=== PATIENT | male | born 1970 | race African-American/Black ===

== ENCOUNTER 2019-05-17 19:17 | Emergency (ER) | payer OTHER ==
[~2019-05-17] VITALS: Ht 188 cm; Wt 90.7 kg
[2019-05-17] MEDS ORDERED: UNABLE MC (19:40)
[2019-05-17] MEDS ORDERED: IV NORMAL SALINE 1000ML BAG 1,000 ML IV ONE (20:00)
[2019-05-17 20:05] LABS: BASO % 1 % (0-3); EOS % 0 % (0-3); HEMATOCRIT 44.5 % (39.0-53.0); HEMOGLOBIN 14.7 g/dL (13.0-17.5); LYMPH # 1.9 x10^3/uL (1.0-4.8); LYMPH % 26 % (24-48); MEAN CORPUSCULAR HEMOGLOBIN 34 pg (25-35); MEAN CORPUSCULAR HGB CONC 33 g/dL (31-37); MEAN CORPUSCULAR VOLUME 104 fL (79-100); MONO # 0.9 x10^3/uL (0.0-1.1); MONO % 12 % (0-9); NEUT # 4.4 x10^3uL (1.8-7.7); NEUT % 61 % (31-73); PLATELET COUNT 126 x10^3/uL (140-400); RED BLOOD COUNT 4.29 x10^6/uL (4.30-5.70); WHITE BLOOD COUNT 7.2 x10^3/uL (4.0-11.0)
[2019-05-17 20:20] LABS: CALCIUM 9.5 mg/dL (8.5-10.1); GFR 96.9; POTASSIUM 3.7 mmol/L (3.5-5.1)
[2019-05-17 20:27] LABS: ALBUMIN/GLOBULIN RATIO 0.8 (1.0-1.7); TOTAL BILIRUBIN 1.3 mg/dL (0.2-1.0); TOTAL PROTEIN 8.8 g/dL (6.4-8.2)
[2019-05-17 20:50] VITALS: BP 171/76
--- NOTE | 2019-05-17 21:32 | PHYS DOC ---
Past Medical History Past Medical History: Seizure, Schizophrenia, Other Past Surgical History: Other Additional Past Surgical Histo: left eye Alcohol Use: Occasionally Drug Use: Marijuana Adult General Chief Complaint Chief Complaint: SEIZURE HPI HPI 48-year-old male with a history of seizures presents after a seizure this evening. He states he does not remember much of the event. He does state that he has not had any headaches or lateralizing neurologic weakness. He denies any fever chills or sweats. He denies neck pain. He states he takes a seizure medicine but he is not sure exactly what the name of it is.[] Review of Systems Review of Systems Constitutional: Denies fever or chills [] Eyes: Denies change in visual acuity, redness, or eye pain [] HENT: Denies nasal congestion or sore throat [] Respiratory: Denies cough or shortness of breath [] Cardiovascular: No additional information not addressed in HPI [] GI: Denies abdominal pain, nausea, vomiting, bloody stools or diarrhea [] : Denies dysuria or hematuria [] Musculoskeletal: Denies back pain or joint pain [] Integument: Denies rash or skin lesions [] Neurologic: Per history of present illness[] Endocrine: Denies polyuria or polydipsia [] All other systems were reviewed and found to be within normal limits, except as documented in this note. Current Medications Current Medications Current Medications Medications (Trade) Dose Ordered Sig/Erik Start Time Stop Time Status Last Admin Dose Admin Sodium Chloride 1,000 ml @ 1,000 mls/hr 1X ONCE 05/17/19 20:00 05/17/19 20:59 DC 05/17/19 20:04 1,000 MLS/HR Allergies Allergies Allergies Coded Allergies Type Severity Reaction Last Updated Verified No Known Drug Allergies 05/17/19 No Physical Exam Physical Exam Constitutional: Chronically ill, somnolent[] HENT: Normocephalic, atraumatic, bilateral external ears normal, oropharynx moist, very poor dentition[] Eyes: PERRLA, EOMI, conjunctiva normal, no discharge. [] Neck: Normal range of motion, no tenderness, supple, no stridor. [] Cardiovascular:Heart rate regular rhythm, no murmur [] Lungs & Thorax: Bilateral breath sounds clear to auscultation [] Abdomen: Bowel sounds normal, soft, no tenderness, no masses, no pulsatile masses. [] Skin: Warm, dry, no erythema, no rash. [] Back: No tenderness, no CVA tenderness. [] Extremities: No tenderness, no cyanosis, no clubbing, ROM intact, no edema. [] Neurologic: Easily arousable, normal motor function, normal sensory function, no focal deficits noted. [] Psychologic: Flat affect. [] Current Patient Data Vital Signs Vital Signs Date Time Temp Pulse Resp B/P (MAP) Pulse Ox O2 Delivery O2 Flow Rate FiO2 05/17/19 20:50 92 99 05/17/19 20:20 11 05/17/19 19:19 98.6 166/107 (126) Room Air 98.6 Lab Values Laboratory Tests Test 05/17/19 19:25 White Blood Count 7.2 x10^3/uL (4.0-11.0) Red Blood Count 4.29 x10^6/uL (4.30-5.70) L Hemoglobin 14.7 g/dL (13.0-17.5) Hematocrit 44.5 % (39.0-53.0) Mean Corpuscular Volume 104 fL (79-100) H Mean Corpuscular Hemoglobin 34 pg (25-35) Mean Corpuscular Hemoglobin Concent 33 g/dL (31-37) Red Cell Distribution Width 13.0 % (11.5-14.5) Platelet Count 126 x10^3/uL (140-400) L Neutrophils (%) (Auto) 61 % (31-73) Lymphocytes (%) (Auto) 26 % (24-48) Monocytes (%) (Auto) 12 % (0-9) H Eosinophils (%) (Auto) 0 % (0-3) Basophils (%) (Auto) 1 % (0-3) Neutrophils # (Auto) 4.4 x10^3uL (1.8-7.7) Lymphocytes # (Auto) 1.9 x10^3/uL (1.0-4.8) Monocytes # (Auto) 0.9 x10^3/uL (0.0-1.1) Eosinophils # (Auto) 0.0 x10^3/uL (0.0-0.7) Basophils # (Auto) 0.0 x10^3/uL (0.0-0.2) Sodium Level 135 mmol/L (136-145) L Potassium Level 3.7 mmol/L (3.5-5.1) Chloride Level 95 mmol/L (98-107) L Carbon Dioxide Level 13 mmol/L (21-32) L Anion Gap 27 (6-14) H Blood Urea Nitrogen 8 mg/dL (8-26) Creatinine 1.0 mg/dL (0.7-1.3) Estimated GFR (Cockcroft-Gault) 96.9 BUN/Creatinine Ratio 8 (6-20) Glucose Level 132 mg/dL (70-99) H Calcium Level 9.5 mg/dL (8.5-10.1) Total Bilirubin 1.3 mg/dL (0.2-1.0) H Aspartate Amino Transferase (AST) 61 U/L (15-37) H Alanine Aminotransferase (ALT) 66 U/L (16-63) H Alkaline Phosphatase 44 U/L (46-116) L Creatine Kinase 129 U/L (39-308) Total Protein 8.8 g/dL (6.4-8.2) H Albumin 4.0 g/dL (3.4-5.0) Albumin/Globulin Ratio 0.8 (1.0-1.7) L Laboratory Tests 05/17/19 19:25 Laboratory Tests 05/17/19 19:25 EKG EKG [] Radiology/Procedures Radiology/Procedures [] Course & Med Decision Making Course & Med Decision Making Pertinent Labs and Imaging studies reviewed. (See chart for details) [ED course: Evaluation reveals 48-year-old male who seemed post ictal on initial exam he did wake up quite a bit throughout his stay in the department. He had no further seizures. Patient was wanting to go home. I think the patient is safe to do so.] Dragon Disclaimer Dragon Disclaimer This electronic medical record was generated, in whole or in part, using a voice recognition dictation system. Departure Departure Impression: Primary Impression: Seizure Disposition: 01 HOME, SELF-CARE Condition: IMPROVED Referrals: NO PCP (PCP) Patient Instructions: Seizure, Adult Additional Instructions: Follow with her primary care physician in the next 3-5 days for recheck. Return to the emergency department with any new or concerning symptoms YOLY VERGARA DO May 17, 2019 21:32
--- NOTE | 2019-05-18 09:44 | EKG ---
[facility] [address] [place] [address] Test Date: 2019-05-17 Test Time: 19:26:26 Pat Name: CONI SALDIVAR Department: Room: Gender: M Entry Level Lab Technician: : 1970 Requested By: YOLY VERGARA Order Number: [id number] Reading MD: Measurements Intervals [place] Rate: 102 P: 43 MD: 144 QRS: 53 QRSD: 82 T: 24 QT: 338 QTc: 445 Interpretive Statements SINUS TACHYCARDIA OTHERWISE NORMAL ECG RI6.01 Unconfirmed report No previous ECG available for comparison
== END 2019-05-17 21:45 | disposition home or self-care (01) ==
LOC: ER 19:17
DX: R56.9 Unspecified convulsions (principal); F20.9 Schizophrenia, unspecified
CPT/HCPCS: 80053; 82550; 85025; 93005; 99285; J7030

== ENCOUNTER 2020-07-08 14:53 | Inpatient (IN) | payer OTHER ==
[~2020-07-08] VITALS: Ht 180.3 cm; Wt 86.0 kg
[~2020-07-08 14:53] MED LIST: UNABLE MC
--- NOTE | 2020-07-08 15:29 | PHYS DOC ---
Past Medical History Past Medical History: Seizure, Schizophrenia, Other (JEFF BARKLEY MANAGER HEART) Past Surgical History: Other Additional Past Surgical Histo: left eye (JEFF BARKLEY MANAGER HEART) Smoking Status: Current Every Day Smoker Alcohol Use: Occasionally Drug Use: Marijuana (RUBIAJEFF MANAGER HEART) General Adult EDM: Chief Complaint: LOWEREXTREMITY INJURY HPI: HPI: Patient is a 49 year old male who presents with states he fell down 8 stairs 2 weeks ago but did not seek any medical care. He states that he had back pain and he thinks that he hit his head and lost consciousness. He is here today complaining of bilateral lower extremity pain, bilateral lower feet swelling, right upper inner femur pain and right hip pain and right low back pain especially when up and walking. Patient has 3+ swelling in bilateral lower feet that are reddened and tender to touch. Patient rates his aching sharp pain a 8 out of 10. Patient has a history of schizophrenia, seizure, smoker. Patient denies chest pain, shortness of air, headache, dizziness, vision changes, numbness or tingling, abdominal pain, nausea, vomiting, diarrhea, fever, cough. (JEFF BARKLEY MANAGER HEART) Review of Systems: Review of Systems: Constitutional: Denies fever or chills. [] Eyes: Denies change in visual acuity. [] HENT: Denies nasal congestion or sore throat. [] Respiratory: Denies cough or shortness of breath. [] Cardiovascular: Denies chest pain. Bilateral lower feet edema. [] GI: Denies abdominal pain, nausea, vomiting, bloody stools or diarrhea. [] : Denies dysuria. [] Musculoskeletal: Right lower back pain or lower feet joint pain. Right upper inner femur [] Integument: Denies rash. Redness to bilateral lower feet [] Neurologic: Denies headache, focal weakness or sensory changes. [] Endocrine: Denies polyuria or polydipsia. [] Lymphatic: Denies swollen glands. [] Psychiatric: Denies depression or anxiety. [] (JEFF BARKLEY MANAGER HEART) Heart Score: Risk Factors: Risk Factors: DM, Current or recent (<one month) smoker, HTN, HLP, family history of CAD, obesity. Risk Scores: Score 0 - 3: 2.5% MACE over next 6 weeks - Discharge Home Score 4 - 6: 20.3% MACE over next 6 weeks - Admit for Clinical Observation Score 7 - 10: 72.7% MACE over next 6 weeks - Early Invasive Strategies (JEFF BARKLEY APRN) Allergies: Allergies: Allergies Coded Allergies Type Severity Reaction Last Updated Verified No Known Drug Allergies 05/17/19 No (JEFF BARKLEY APRN) Physical Exam: PE: Constitutional: Well developed, well nourished, no acute distress, non-toxic appearance. [] HENT: Normocephalic, atraumatic, bilateral external ears normal, oropharynx moist, no oral exudates, nose normal. [] Eyes: PERRLA, EOMI, conjunctiva normal, no discharge. [] Neck: Normal range of motion, no tenderness, supple, no stridor. [] Cardiovascular:Heart rate regular rhythm, no murmur [] Lungs & Thorax: Bilateral upper breath sounds clear and lower diminished to auscultation [] Abdomen: Bowel sounds normal, soft, no tenderness, no masses, no pulsatile mas ses. [] Skin: Warm, dry, bilateral lower feet erythema, no rash. [] Back: No tenderness, no CVA tenderness. [] Extremities: Bilateral lower feet tenderness, no cyanosis, no clubbing, ROM int act, bilateral lower feet 3+ edema. [] Neurologic: Alert and oriented X 3, normal motor function, normal sensory function, no focal deficits noted. [] Psychologic: Affect normal, judgement normal, mood normal. [] (JEFF BARKLEY APRN) EKG: EKG: [] (JEFF BARKLEY APRN) Radiology/Procedures: Radiology/Procedures: [] Impression: [facility] [address] [place], [place] [id number] IMAGING REPORT Signed PATIENT: CONI SALDIVAR ACCOUNT: [id number] : 1970 LOCATION: ER AGE: 49 SEX: M EXAM STATUS: REG ER ORD. PHYSICIAN: JEFF BARKLEY APRN REASON: fall, pain PROCEDURE: RIGHT FEMUR XRAY Exam: Right femur 2 views INDICATION: Fall, pain TECHNIQUE: Frontal and lateral views of the right femur Comparisons: None FINDINGS: Bone mineralization is normal. No acute or healed fractures. Soft tissues are unremarkable. Joint spaces are well-maintained. IMPRESSION: No acute osseous abnormality. Electronically signed by: Alfred Greenfield MD (07/08/2020 4:02 PM) [id number] DICTATED and SIGNED BY: ALFRED GREENFIELD MD DATE: 07/08/[address] [place] [address] IMAGING REPORT Signed PATIENT: CONI SALDIVAR ACCOUNT: [id number] : 1970 LOCATION: ER AGE: 49 SEX: M EXAM STATUS: REG ER ORD. PHYSICIAN: JEFF BARKLEY APRN REASON: fall, pain PROCEDURE: HIP BILATERAL WITH PELVIS Exam: Pelvis with bilateral hips INDICATION: Fall, pain TECHNIQUE: Frontal view of the pelvis with frontal and frog-leg lateral views of the hips bilaterally. Comparisons: None FINDINGS: Possible cortical step-off seen at the inferior pubic rami on the right is seen only on frog-leg lateral view of the right hip. Bone mineralization is normal. No other acute or healed fractures. Soft tissues are unremarkable. Joint spaces are well-maintained. IMPRESSION: Question minimally displaced fracture involving the right inferior pubic rami. Recommend correlation with CT pelvis Electronically signed by: Alfred Greenfield MD (07/08/2020 4:02 PM) [id number] DICTATED and SIGNED BY: ALFRED GREENFIELD MD DATE: 07/08/[address] [place] [id number] IMAGING REPORT Signed PATIENT: CONI SALDIVAR ACCOUNT: [id number] : 1970 LOCATION: ER AGE: 49 SEX: M EXAM STATUS: REG ER ORD. PHYSICIAN: JEFF BARKLEY APRN REASON: FALL, LOC, DIFFICULTY COOPERATING FOR CT PROCEDURE: CT HEAD AND CERVICAL SPINE WO CT HEAD WITHOUT CONTRAST 07/08/2020 3:21 PM Indication: Reason: FALL, LOC, DIFFICULTY COOPERATING FOR CT / Spl. Instructions: / History: Comparison: CT of the head without contrast July 29, 2006 Procedure: Multidetector CT imaging of the head was performed without the administration of contrast. Findings: There is no evidence of acute intracranial hemorrhage. There is no evidence of acute territorial infarction. Please note that CT is limited for evaluation of acute ischemia. No mass effect or midline shift is identified . The ventricles and basilar cisterns have an appropriate appearance. No abnormal extra-axial fluid collections are seen. No acute osseous changes are identified. Impression: No evidence of acute intracranial abnormality CT cervical spine without contrast. 07/08/2020 3:21 PM Indication:Reason: FALL, LOC, DIFFICULTY COOPERATING FOR CT / Spl. Instructions: / History: Comparison Study: None Technique: Multidetector CT imaging of the cervical spine was obtained without administration of contrast. Findings: There is no evidence of acute fracture or alignment abnormality of the cervical spine. Vertebral body heights and disc spaces are maintained. The atlantoaxial articulation is within normal limits. There is no prevertebral soft tissue swelling. Soft tissues are otherwise unremarkable. No bony compromise of the spinal canal is seen. Impression: No evidence of acute fracture or alignment abnormality of the cervical spine CT DOSING PQRS STATEMENT: One or more of the following individualized dose reduction techniques were utilized for this examination: 1. Automated exposure control 2. Adjustment of the mA and/or kV according to patient size 3. Use of iterative reconstruction technique Electronically signed by: Osmani Aceves MD (07/08/2020 4:04 PM) [id number] DICTATED and SIGNED BY: OSMANI ACEVES MD DATE: 07/08/20 1604 [facility] [address] [place] [address] IMAGING REPORT Signed PATIENT: CONI SALDIVAR ACCOUNT: [id number] : 1970 LOCATION: ER AGE: 49 SEX: M EXAM STATUS: REG ER ORD. PHYSICIAN: JEFF BARKLEY APRN REASON: fall, pain PROCEDURE: FOOT BILAT 3V Exam: Right and left foot 3 views INDICATION: Fall, pain TECHNIQUE: Frontal, lateral and oblique views of the right foot Comparisons: None FINDINGS: Right foot: Bone mineralization is normal. No acute or healed fractures. There is diffuse soft tissue swelling surrounding the midfoot. Joint spaces are well-maintained. Left foot: Bone mineralization is normal. No acute or healed fractures. There is diffuse soft tissue swelling surrounding the left midfoot. Joint spaces are well-maintained. IMPRESSION: Soft tissue swelling surrounding the right and left midfoot without acute fracture identified. Electronically signed by: Alfred Greenfield MD (07/08/2020 3:58 PM) [id number] DICTATED and SIGNED BY: ALFRED GREENFIELD MD DATE: 07/08/20 1558 [facility] [address] [place] [address] IMAGING REPORT Signed PATIENT: CONI SALDIVAR ACCOUNT: [id number] : 1970 LOCATION: ER AGE: 49 SEX: M EXAM STATUS: REG ER ORD. PHYSICIAN: JEFF BARKLEY APRN REASON: fall, BACK PAIN PROCEDURE: CT LUMBAR SPINE WO CONTRAST CT LUMBAR SPINE WO CONTRAST Indication: Fall, back pain Technique: Noncontrast CT imaging was performed of the lumbar spine, multiplanar reconstruction images submitted. One or more of the following individualized dose reduction techniques were utilized for this examination: 1. Automated exposure control 2. Adjustment of the mA and/or kV according to patient size 3. Use of iterative reconstruction technique. Comparison: None Findings: There is bone demineralization. There is inferior compression deformity of L4, L3, L2 and also central height loss of L1. There is no significant osseous retropulsion, negligible osseous retropulsion of the superior aspect of L1. There is severe L5-S1 degenerative disc disease with sclerotic endplate change. No significant spinal stenosis is identified on this nonmyelographic exam. There is multilevel lumbar facet degenerative change. Disc osteophyte complex contributes to moderate narrowing of the left L5-S1 neural foramen. There is mild lumbar levoscoliosis. IMPRESSION: 1. There is bone demineralization. There is age indeterminate multilevel compression deformity L1-L4, no previous exam for comparison. 2. There is L5-S1 degenerative disc disease and spondylosis. There is moderate narrowing of the left L5-S1 neural foramen by disc osteophyte complex. Electronically signed by: Maurice Moran MD (07/08/2020 4:05 PM) [id number] DICTATED and SIGNED BY: MAURICE MORAN MD DATE: 07/08/20 1605 [facility] [address] [place] [address] IMAGING REPORT Signed PATIENT: CONI SALDIVAR ACCOUNT: [id number] : 1970 LOCATION: ER AGE: 49 SEX: M EXAM STATUS: REG ER ORD. PHYSICIAN: JEFF BARKLEY APRN REASON: POSSIBLE FRACTURE, FALL 2 WKS AGO, RT HIP PAIN PROCEDURE: CT PELVIS WO CONTRAST Exam: CT pelvis without contrast INDICATION: Possible fracture. Fall 2 weeks ago TECHNIQUE: Sequential axial images through the pelvis obtained without IV contrast. Sagittal and coronal reformatted images were reconstructed from the axial data and reviewed. Comparisons: Contrast same day FINDINGS: There is a mildly displaced fracture involving the inferior and superior right pubic rami with mild surrounding callus formation. Additionally, there is a nondisplaced right sacral ala fracture. Visualized intrapelvic structures are unremarkable. Joint spaces are well-maintained. Visualized soft tissues of the lower extremities are unremarkable. IMPRESSION: 1. Subacute appearing fractures involving the right inferior and superior pubic rami, minimally displaced. 2. Minimally displaced right sacral devin fractures also noted. Exposure: One or more of the following in the visualized dose reduction techniques were utilized for this examination: 1. Automated exposure control 2. Adjustment of the MA and/or KV according to patient size 3. Use of iterative of reconstructive technique Electronically signed by: Alfred Greenfield MD (07/08/2020 5:13 PM) [id number] DICTATED and SIGNED BY: ALFRED GREENFIELD MD DATE: 07/08/20 1714 [facility] [address] [place] [address] IMAGING REPORT Signed PATIENT: CONI SALDIVAR ACCOUNT: [id number] : 1970 LOCATION: ER AGE: 49 SEX: M EXAM STATUS: REG ER ORD. PHYSICIAN: JEFF BARKLEY APRN REASON: swelling, pain PROCEDURE: VENOUS LOWER EXT BILATERAL Examination: Bilateral venous Doppler Indication: Leg swelling Technique: Ultrasound evaluation of the bilateral lower extremities was performed from the groin to the upper calf with kent scale, spectral and color doppler evaluation. Findings: There is normal venous flow and compressibility of bilateral common femoral veins, femoral veins, popliteal veins, and visualized proximal calf veins. Of note, the calf veins are not well seen due to soft tissue swelling. Mildly prominent lymph nodes in the left inguinal region, possibly reactive. Impression: No evidence for deep vein thrombosis of bilateral lower extremities from the level of the calf veins to the groins. Electronically signed by: Kit Terrazas MD (07/08/2020 7:27 PM) [facility] DICTATED and SIGNED BY: KIT TERRAZAS MD DATE: 07/08/201926 (JEFF BARKLEY APRN) Course & Med Decision Making: Course & Med Decision Making Pertinent Labs and Imaging studies reviewed. (See chart for details) With palpation there is no tenderness to cervical spine, thoracic spine, lumbar spine. There is no tenderness or deformity felt or seen with palpation to bilateral hips or with pelvic rock, right femur. He does however have tenderness to bilateral feet when they are touched. See HPI. Pulses could not be felt in bilateral pedal due to swelling. Abdomen soft and nontender. Lungs are clear in upper lobes and diminished in lower lobes. No bruising to his back or abdomen. No trauma to his skull or maxillofacial. No lacerations or abrasions are seen. Patient is a poor historian. I have spoken to Dr. Hair concerning fractures noted in the pelvis. He states that the patient would need a walker or if he is unable to walk and be admitted to the hospital. I have spoken to Dr Molina concerning this patient and he agrees that the patient has probable cellulitis. Patient is admitted for Pelvic fr acture and cellulitis. I have ordered blood cultures, US bilateral lower legs and vancomycin. [] (JEFF BARKLEY APRN) Dragon Disclaimer: Dragon Disclaimer: This electronic medical record was generated, in whole or in part, using a voice recognition dictation system. (JEFF BARKLEY APRN) Dragon Disclaimer: I have personally interviewed and examined patient. All charts, labs and imaging studies were reviewed. I agreed with the PA/OFFICE ADMINISTRATIVE ASSISTANT's findings, exam and plan of care. Bilateral feet swelling tender erythema, warm to touch. (ROSANNE MOLINA DO) Departure Departure Impression: Primary Impression: Pelvic fracture Qualified Codes: S32.89XA - Fracture of other parts of pelvis, initial encounter for closed fracture Additional Impression: Cellulitis Qualified Codes: L03.119 - Cellulitis of unspecified part of limb Disposition: ADMITTED INPATIENT Admitting Physician: BHARATI (JEFF BARKLEY APRN) Admitting Physician: BHARATI (ROSANNE MOLINA DO) Condition: STABLE Referrals: NO PCP (PCP) Justicifation of Admission Dx: Justifications for Admission: Justification of Admission Dx: N/A Comments: pelvic fracture (JEFF BARKLEY APRN) Justification of Admission Dx: Yes Fracture: Fracture (ROSANNE MOLINA DO) JEFF BARKLEY APRN Jul 08, 2020 15:29 ROSANNE MOLINA DO Jul 09, 2020 06:38
--- NOTE | 2020-07-08 16:01 | RAD ---
Exam: Right and left foot 3 views INDICATION: Fall, pain TECHNIQUE: Frontal, lateral and oblique views of the right foot Comparisons: None FINDINGS: Right foot: Bone mineralization is normal. No acute or healed fractures. There is diffuse soft tissue swelling surrounding the midfoot. Joint spaces are well-maintained. Left foot: Bone mineralization is normal. No acute or healed fractures. There is diffuse soft tissue swelling surrounding the left midfoot. Joint spaces are well-maintained. IMPRESSION: Soft tissue swelling surrounding the right and left midfoot without acute fracture identified. Electronically signed by: Alfred Canas MD (07/08/2020 3:58 PM) [id number]
--- NOTE | 2020-07-08 16:04 | RAD ---
Exam: Right femur 2 views INDICATION: Fall, pain TECHNIQUE: Frontal and lateral views of the right femur Comparisons: None FINDINGS: Bone mineralization is normal. No acute or healed fractures. Soft tissues are unremarkable. Joint spaces are well-maintained. IMPRESSION: No acute osseous abnormality. Electronically signed by: Alfred Canas MD (07/08/2020 4:02 PM) [id number]
--- NOTE | 2020-07-08 16:04 | RAD ---
Exam: Pelvis with bilateral hips INDICATION: Fall, pain TECHNIQUE: Frontal view of the pelvis with frontal and frog-leg lateral views of the hips bilaterally. Comparisons: None FINDINGS: Possible cortical step-off seen at the inferior pubic rami on the right is seen only on frog-leg lateral view of the right hip. Bone mineralization is normal. No other acute or healed fractures. Soft tissues are unremarkable. Joint spaces are well-maintained. IMPRESSION: Question minimally displaced fracture involving the right inferior pubic rami. Recommend correlation with CT pelvis Electronically signed by: Alfred Canas MD (07/08/2020 4:02 PM) [id number]
--- NOTE | 2020-07-08 16:07 | RAD ---
CT HEAD WITHOUT CONTRAST 07/08/2020 3:21 PM Indication: Reason: FALL, LOC, DIFFICULTY COOPERATING FOR CT / Spl. Instructions: / History: Comparison: CT of the head without contrast July 29, 2006 Procedure: Multidetector CT imaging of the head was performed without the administration of contrast. Findings: There is no evidence of acute intracranial hemorrhage. There is no evidence of acute territorial infarction. Please note that CT is limited for evaluation of acute ischemia. No mass effect or midline shift is identified . The ventricles and basilar cisterns have an appropriate appearance. No abnormal extra-axial fluid collections are seen. No acute osseous changes are identified. Impression: No evidence of acute intracranial abnormality CT cervical spine without contrast. 07/08/2020 3:21 PM Indication:Reason: FALL, LOC, DIFFICULTY COOPERATING FOR CT / Spl. Instructions: / History: Comparison Study: None Technique: Multidetector CT imaging of the cervical spine was obtained without administration of contrast. Findings: There is no evidence of acute fracture or alignment abnormality of the cervical spine. Vertebral body heights and disc spaces are maintained. The atlantoaxial articulation is within normal limits. There is no prevertebral soft tissue swelling. Soft tissues are otherwise unremarkable. No bony compromise of the spinal canal is seen. Impression: No evidence of acute fracture or alignment abnormality of the cervical spine CT DOSING PQRS STATEMENT: One or more of the following individualized dose reduction techniques were utilized for this examination: 1. Automated exposure control 2. Adjustment of the mA and/or kV according to patient size 3. Use of iterative reconstruction technique Electronically signed by: Osmani Aceves MD (07/08/2020 4:04 PM) [id number]
--- NOTE | 2020-07-08 16:09 | RAD ---
CT LUMBAR SPINE WO CONTRAST Indication: Fall, back pain Technique: Noncontrast CT imaging was performed of the lumbar spine, multiplanar reconstruction images submitted. One or more of the following individualized dose reduction techniques were utilized for this examination: 1. Automated exposure control 2. Adjustment of the mA and/or kV according to patient size 3. Use of iterative reconstruction technique. Comparison: None Findings: There is bone demineralization. There is inferior compression deformity of L4, L3, L2 and also central height loss of L1. There is no significant osseous retropulsion, negligible osseous retropulsion of the superior aspect of L1. There is severe L5-S1 degenerative disc disease with sclerotic endplate change. No significant spinal stenosis is identified on this nonmyelographic exam. There is multilevel lumbar facet degenerative change. Disc osteophyte complex contributes to moderate narrowing of the left L5-S1 neural foramen. There is mild lumbar levoscoliosis. IMPRESSION: 1. There is bone demineralization. There is age indeterminate multilevel compression deformity L1-L4, no previous exam for comparison. 2. There is L5-S1 degenerative disc disease and spondylosis. There is moderate narrowing of the left L5-S1 neural foramen by disc osteophyte complex. Electronically signed by: Pankaj Loredo MD (07/08/2020 4:05 PM) [id number]
[2020-07-08 16:31] LABS: BASO # 0.1 x10^3/uL (0.0-0.2); BASO % 1 % (0-3); EOS % 0 % (0-3); HEMATOCRIT 33.3 % (39.0-53.0); HEMOGLOBIN 11.6 g/dL (13.0-17.5); LYMPH # 1.1 x10^3/uL (1.0-4.8); LYMPH % 12 % (24-48); MEAN CORPUSCULAR HEMOGLOBIN 35 pg (25-35); MEAN CORPUSCULAR HGB CONC 35 g/dL (31-37); MEAN CORPUSCULAR VOLUME 101 fL (79-100); MONO # 0.8 x10^3/uL (0.0-1.1); MONO % 8 % (0-9); NEUT # 7.3 x10^3/uL (1.8-7.7); NEUT % 79 % (31-73); PLATELET COUNT 210 x10^3/uL (140-400); RED CELL DISTRIBUTION WIDTH 12.4 % (11.5-14.5); WHITE BLOOD COUNT 9.3 x10^3/uL (4.0-11.0)
[2020-07-08 16:39] LABS: CALCIUM 8.5 mg/dL (8.5-10.1); CREATININE 0.7 mg/dL (0.7-1.3); GFR 145.6; POTASSIUM 4.1 mmol/L (3.5-5.1)
[2020-07-08 16:45] LABS: ALBUMIN 3.2 g/dL (3.4-5.0); ALBUMIN/GLOBULIN RATIO 0.7 (1.0-1.7); TOTAL BILIRUBIN 1.8 mg/dL (0.2-1.0); TOTAL PROTEIN 7.7 g/dL (6.4-8.2)
[2020-07-08] MEDS ORDERED: fentaNYL PF VIAL 100 MCG/2 ML VIAL IVP ONE (17:15)
--- NOTE | 2020-07-08 17:16 | RAD ---
Exam: CT pelvis without contrast INDICATION: Possible fracture. Fall 2 weeks ago TECHNIQUE: Sequential axial images through the pelvis obtained without IV contrast. Sagittal and coronal reformatted images were reconstructed from the axial data and reviewed. Comparisons: Contrast same day FINDINGS: There is a mildly displaced fracture involving the inferior and superior right pubic rami with mild surrounding callus formation. Additionally, there is a nondisplaced right sacral ala fracture. Visualized intrapelvic structures are unremarkable. Joint spaces are well-maintained. Visualized soft tissues of the lower extremities are unremarkable. IMPRESSION: 1. Subacute appearing fractures involving the right inferior and superior pubic rami, minimally displaced. 2. Minimally displaced right sacral devin fractures also noted. Exposure: One or more of the following in the visualized dose reduction techniques were utilized for this examination: 1. Automated exposure control 2. Adjustment of the MA and/or KV according to patient size 3. Use of iterative of reconstructive technique Electronically signed by: Alfred Canas MD (07/08/2020 5:13 PM) [id number]
[2020-07-08] MEDS ORDERED: VANCOMYCIN 2 GM in IV NORMAL SALINE 500ML BAG 500 ML IV ONE (18:15)
[2020-07-08] MEDS ORDERED: fentaNYL PF VIAL 100 MCG/2 ML VIAL IV PRN (18:30)
[2020-07-08] MEDS ORDERED: ONDANSETRON PF 4 MG/2 ML VIAL. IV PRN (18:30)
--- NOTE | 2020-07-08 19:30 | RAD ---
Examination: Bilateral venous Doppler Indication: Leg swelling Technique: Ultrasound evaluation of the bilateral lower extremities was performed from the groin to the upper calf with kent scale, spectral and color doppler evaluation. Findings: There is normal venous flow and compressibility of bilateral common femoral veins, femoral veins, popliteal veins, and visualized proximal calf veins. Of note, the calf veins are not well seen due to soft tissue swelling. Mildly prominent lymph nodes in the left inguinal region, possibly reactive. Impression: No evidence for deep vein thrombosis of bilateral lower extremities from the level of the calf veins to the groins. Electronically signed by: Kit Breen MD (07/08/2020 7:27 PM) CHALO
--- NOTE | 2020-07-08 20:43 | PDOC1 ---
History and Physical Date of Admission Date of Admission DATE: 07/08/20 TIME: 20:35 Source Source: Chart review, Patient History of Present Illness History of Present Illness Mr. Huang, is a 49 year old male who presents with states he fell down 8 stairs 2 weeks ago but did not seek any medical care. He is disheveled and appears to have poor self care. Noted back pain and he thinks that he hit his head. He is here today complaining of bilateral lower extremity pain, bilateral lower feet swelling Pain 07/07./ noted edmea to feet and ankles and is tender Patient has a history of schizophrenia, and appears homeless Past Medical History Cardiovascular: HTN Psych: Psychosis, Schizophrenia Past Surgical History Past Surgical History: No pertinent history Family History Family History: High Cholestrol, Hypertension Social History Smoke: <1 pack per day ALCOHOL: none Drugs: Other Current Problem List Problem List Problems Medical Problems: (1) Cellulitis Status: Acute (2) Pelvic fracture Status: Acute Current Medications Current Medications Current Medications Fentanyl Citrate (Fentanyl 2ml Vial) 50 mcg 1X ONCE IVP Last administered on 07/08/20at 17:04; Start 07/08/20 at 17:15; Stop 07/08/20 at 17:16; Status DC Vancomycin HCl (Vanco Per Pharmacy) 1 each PRN DAILY PRN [facility] SEE COMMENTS; Start 07/08/20 at 18:00; Status UNV Vancomycin HCl 2 gm/Sodium Chloride 500 ml @ 250 mls/hr 1X ONCE IV Last administered on 07/08/20at 18:15; Start 07/08/20 at 18:15; Stop 07/08/20 at 20:14; Status DC Ondansetron HCl (Zofran) 4 mg PRN Q8HRS PRN IV NAUSEA/VOMITING; Start 07/08/20 at 18:30; Stop 07/09/20 at 18:29 Fentanyl Citrate (Fentanyl 2ml Vial) 50 mcg PRN Q1HR PRN IV PAIN; Start 07/08/20 at 18:30; Stop 07/09/20 at 18:29 Active Scripts Active Reported Unable To Obtain Meds From Prior To Admit (Info) Each 1 Each MC Allergies Allergies: Coded Allergies: No Known Drug Allergies (Unverified , 05/17/19) ROS General: YES: Fatigue, Malaise PSYCHOLOGICAL ROS: YES: Sleep disturbances; No: Anxiety, Behavioral Disorder, Concentration difficultie, Decreased libido, Depression, Disorientation, Hallucinations, Hostility, Irritablity, Memory difficulties, Mood Swings, Obsessive thoughts, Physical abuse, Sexual abuse, Suicidal ideation, Other Eyes: No Blurry vision, No Decreased vision, No Double vision, No Dry eyes, No Excessive tearing, No Eye Pain, No Itchy Eyes, No Loss of vision, No Photophobia, No Scotomata, No Uses contacts, No Uses glasses, No Other Respiratory: No: Cough, Hemoptysis, Orthopnea, Pleuritic Pain, Shortness of breath, SOB with excertion, Sputum Changes, Stridor, Tachypnea, Wheezing, Other Cardiovascular: No Chest Pain, No Palpitations, No Orthopnea, No Paroxysmal Noc. Dyspnea, No Edema, No Lt Headedness, No Other Gastrointestinal: No Nausea, No Vomiting, No Abdominal Pain, No Diarrhea, No Constipation, No Melena, No Hematochezia, No Other Genitourinary: No Dysuria, No Frequency, No Incontinence, No Hematuria, No Retention, No Discharge, No Urgency, No Pain, No Flank Pain, No Other, No , No , No , No , No , No , No Musculoskeletal: Yes Gait Disturbance, Yes Joint Pain Neurological: No Behavorial Changes, No Bowel/Bladder ControlChng, No Confusion, No Dizziness, No Gait Disturbance, No Headaches, No Impaired Coord/balance, No Memory Loss, No Numbness/Tingling, No Seizures, No Speech Problems, No Tremors, No Visual Changes, No Weakness, No Other Skin: Yes Dry Skin; No Eczema, No Hair Changes, No Lumps, No Mole Changes, No Mottling, No Nail Changes, No Pruritus, No Rash, No Skin Lesion Changes, No Other, No Acne Physical Exam General: Alert, Oriented X3, Cooperative, mild distress HEENT: Atraumatic, PERRLA, EOMI, Mucous membr. moist/pink Lungs: Clear to auscultation Heart: S1S2, no gallops Extremities: No clubbing, Other (2+ pedal edema) Skin: Other (erythema and edema left ankle worse than right, very poor nail care) Neuro: Normal speech Psych/Mental Status: Mental status NL, Mood NL Vitals Vitals Vital Signs Date Time Temp Pulse Resp B/P (MAP) Pulse Ox O2 Delivery O2 Flow Rate FiO2 8/20 18:31 112 179/84 (115) 98 Room Air 07/08/20 17:04 18 07/08/20 15:10 97.5 97.5 Labs Labs Laboratory Tests Test 07/08/20 16:20 White Blood Count 9.3 x10^3/uL (4.0-11.0) Red Blood Count 3.30 x10^6/uL (4.30-5.70) Hemoglobin 11.6 g/dL (13.0-17.5) Hematocrit 33.3 % (39.0-53.0) Mean Corpuscular Volume 101 fL (79-100) Mean Corpuscular Hemoglobin 35 pg (25-35) Mean Corpuscular Hemoglobin Concent 35 g/dL (31-37) Red Cell Distribution Width 12.4 % (11.5-14.5) Platelet Count 210 x10^3/uL (140-400) Neutrophils (%) (Auto) 79 % (31-73) Lymphocytes (%) (Auto) 12 % (24-48) Monocytes (%) (Auto) 8 % (0-9) Eosinophils (%) (Auto) 0 % (0-3) Basophils (%) (Auto) 1 % (0-3) Neutrophils # (Auto) 7.3 x10^3/uL (1.8-7.7) Lymphocytes # (Auto) 1.1 x10^3/uL (1.0-4.8) Monocytes # (Auto) 0.8 x10^3/uL (0.0-1.1) Eosinophils # (Auto) 0.0 x10^3/uL (0.0-0.7) Basophils # (Auto) 0.1 x10^3/uL (0.0-0.2) Sodium Level 130 mmol/L (136-145) Potassium Level 4.1 mmol/L (3.5-5.1) Chloride Level 92 mmol/L (98-107) Carbon Dioxide Level 29 mmol/L (21-32) Anion Gap 9 (6-14) Blood Urea Nitrogen 7 mg/dL (8-26) Creatinine 0.7 mg/dL (0.7-1.3) Estimated GFR (Cockcroft-Gault) 145.6 BUN/Creatinine Ratio 10 (6-20) Glucose Level 83 mg/dL (70-99) Calcium Level 8.5 mg/dL (8.5-10.1) Total Bilirubin 1.8 mg/dL (0.2-1.0) Aspartate Amino Transf (AST/SGOT) 32 U/L (15-37) Alanine Aminotransferase (ALT/SGPT) 20 U/L (16-63) Alkaline Phosphatase 71 U/L (46-116) NU-Uaq-M-Type Natriuretic Peptide 26 pg/mL (0-124) Total Protein 7.7 g/dL (6.4-8.2) Albumin 3.2 g/dL (3.4-5.0) Albumin/Globulin Ratio 0.7 (1.0-1.7) Laboratory Tests Test 07/08/20 16:20 White Blood Count 9.3 x10^3/uL (4.0-11.0) Red Blood Count 3.30 x10^6/uL (4.30-5.70) Hemoglobin 11.6 g/dL (13.0-17.5) Hematocrit 33.3 % (39.0-53.0) Mean Corpuscular Volume 101 fL (79-100) Mean Corpuscular Hemoglobin 35 pg (25-35) Mean Corpuscular Hemoglobin Concent 35 g/dL (31-37) Red Cell Distribution Width 12.4 % (11.5-14.5) Platelet Count 210 x10^3/uL (140-400) Neutrophils (%) (Auto) 79 % (31-73) Lymphocytes (%) (Auto) 12 % (24-48) Monocytes (%) (Auto) 8 % (0-9) Eosinophils (%) (Auto) 0 % (0-3) Basophils (%) (Auto) 1 % (0-3) Neutrophils # (Auto) 7.3 x10^3/uL (1.8-7.7) Lymphocytes # (Auto) 1.1 x10^3/uL (1.0-4.8) Monocytes # (Auto) 0.8 x10^3/uL (0.0-1.1) Eosinophils # (Auto) 0.0 x10^3/uL (0.0-0.7) Basophils # (Auto) 0.1 x10^3/uL (0.0-0.2) Sodium Level 130 mmol/L (136-145) Potassium Level 4.1 mmol/L (3.5-5.1) Chloride Level 92 mmol/L (98-107) Carbon Dioxide Level 29 mmol/L (21-32) Anion Gap 9 (6-14) Blood Urea Nitrogen 7 mg/dL (8-26) Creatinine 0.7 mg/dL (0.7-1.3) Estimated GFR (Cockcroft-Gault) 145.6 BUN/Creatinine Ratio 10 (6-20) Glucose Level 83 mg/dL (70-99) Calcium Level 8.5 mg/dL (8.5-10.1) Total Bilirubin 1.8 mg/dL (0.2-1.0) Aspartate Amino Transf (AST/SGOT) 32 U/L (15-37) Alanine Aminotransferase (ALT/SGPT) 20 U/L (16-63) Alkaline Phosphatase 71 U/L (46-116) RN-Cxk-C-Type Natriuretic Peptide 26 pg/mL (0-124) Total Protein 7.7 g/dL (6.4-8.2) Albumin 3.2 g/dL (3.4-5.0) Albumin/Globulin Ratio 0.7 (1.0-1.7) Images Images lots done, reviewed VTE Prophylaxis Ordered VTE Prophylaxis Devices: No VTE Pharmacological Prophylaxi: Yes Assessment/Plan Assessment/Plan fall, leg pain and hip pain pelvis fracure, pain control PT and OT LE edema and cellulitis, VANCO iv started, schizophrenia homeless mild malnutrition, admit Justicifation of Admission Dx: Justifications for Admission: Justification of Admission Dx: N/A UMM DOMÍNGUEZ MD Jul 08, 2020 20:43
[2020-07-08] MEDS: VANCOMYCIN PER PHARMACY MC PRN (20:44)
--- NOTE | 2020-07-08 20:45 | NUR ---
Pharmacy Vancomycin Dosing Note S:Consulted to monitor and dose vancomycin started 07/08/20. O:CONI SALDIVAR is a 49 year old M with Cellulitis Height: 5 feet, 11 inches Weight: 105.0 kg [place] Body Weight: 75.30 Adjusted Body Weight: 87.18 Dosing Weight: Actual Other Antibiotics: - LABS: Last BUN: 7 Last Creatinine: 0.7 Creatinine Clearance: >100 mL/min Last WBC: 9.3 Last Procalcitonin: Tmax (past 24 hours): 97.5 Last dose given 07/08/20 at 1815 Vancomycin Dosing: Loading Dose: 2000 mg x1 Dosing Weight: Actual Target Trough: 10-20 A: Based on: weight and renal function P: 1. Begin Vancomycin 1500 mg IV q12h 2. Follow up Trough level on 07/10/20 at 0530 3. Pharmacy will continue to monitor, follow and adjust therapy as needed. Maite Lindsay RPH, 07/08/20 [id number]
[2020-07-08 20:54] LABS: CLARITY,URINE CLOUDY; COLOR,URINE ORANGE
[2020-07-08 20:58] LABS: SQUAMOUS EPITHELIAL CELL,UR FEW /LPF
[2020-07-08 21:00] LABS: AMORPHOUS SEDIMENT,UR PRESENT /HPF; BACTERIA,URINE FEW /HPF (0-FEW); BARBITURATES NEG (NEG); BENZODIAZEPINES NEG (NEG); CANNABINOIDS POS (NEG); COCAINE NEG (NEG); METHADONE NEG (NEG); OPIATES NEG (NEG); PHENCYCLIDINE NEG (NEG); WBC,URINE 20-40 /HPF (0-4)
[2020-07-08 21:08] LABS: AMPHETAMINE/METHAMPHETAMINE NEG (NEG)
--- NOTE | 2020-07-08 21:24 | NUR ---
The patient, CONI SALDIVAR, 49 y/o, M admitted by UMM DOMÍNGUEZ MD, was given written information regarding hospital policies, unit procedures and contact persons. Valuables were checked and left with him.
[2020-07-08 21:27] VITALS: BP 121/69
--- NOTE | 2020-07-08 21:45 | NUR ---
Takes only one medication that is a substitute for Geodon states, "I don't remember the name or dose of it so my brother will have to bring it in tomorrow."
[2020-07-08] MEDS: ACETAMINOPHEN 325 MG TABLET. PO PRN (22:47)
[2020-07-08] MEDS: METOPROLOL TART IMMED RELEASE 25 MG TABLET. PO SCH (22:49)
[2020-07-08] MEDS: ENOXAPARIN 40 MG/0.4 ML SYRINGE. SQ SCH (22:50)
[2020-07-08 23:00] VITALS: BP 111/72
[2020-07-08] MEDS: QUEtiapine 100 MG TABLET. PO SCH (23:27)
[2020-07-08] MEDS: cefTRIAXone IV Push 2 GM VIAL. IVP SCH (23:27)
[2020-07-09 03:00] VITALS: BP 108/72
[2020-07-09] MEDS: VANCOMYCIN 1.5 GM in IV NORMAL SALINE 500ML BAG 500 ML IV SCH ×2 (05:10→17:27)
[2020-07-09 06:45] LABS: CREATININE 0.8 mg/dL (0.7-1.3); GFR 124.8
[2020-07-09 07:00] VITALS: BP 105/70
[2020-07-09] MEDS: VITAMIN B12,B9,B6 COMPLEX 1 TABLET. PO SCH (08:39)
[2020-07-09] MEDS: ASCORBIC ACID 500 MG TABLET PO SCH (08:40)
[2020-07-09] MEDS: METOPROLOL TART IMMED RELEASE 25 MG TABLET. PO SCH ×2 (08:40→20:40)
[2020-07-09] MEDS: ZINC SULFATE 220 MG CAPSULE. PO SCH (08:40)
--- NOTE | 2020-07-09 09:23 | PDOC2 ---
CONSULT Date of Consult Date of Consult DATE: 07/09/20 TIME: 09:14 Reason for Consult Reason for Consult: Patient with reported fall approximately 3 weeks ago at his home. Patient has mild pelvic pain an more intense right foot pain. Referring Physician Referring Physician: Dr Porras Identification/Chief Complaint Chief Complaint Pelvis and right foot pain. Source Source: Caregiver, Chart review, Patient History of Present Illness Reason for Visit: Pain in described areas after fall. Past Medical History Cardiovascular: HTN Psych: Psychosis, Schizophrenia Past Surgical History Past Surgical History: No pertinent history Family History Family History: High Cholestrol, Hypertension Social History <1 pack per day ALCOHOL: none Drugs: Other Current Problem List Problem List Problems Medical Problems: (1) Cellulitis Status: Acute (2) Pelvic fracture Status: Acute Current Medications Current Medications Current Medications Fentanyl Citrate (Fentanyl 2ml Vial) 50 mcg 1X ONCE IVP Last administered on 07/08/20at 17:04; Start 07/08/20 at 17:15; Stop 07/08/20 at 17:16; Status DC Vancomycin HCl (Vanco Per Pharmacy) 1 each PRN DAILY PRN MC SEE COMMENTS Last administered on 07/08/20at 20:44; Start 07/08/20 at 18:00 Vancomycin HCl 2 gm/Sodium Chloride 500 ml @ 250 mls/hr 1X ONCE IV Last administered on 07/08/20at 18:15; Start 07/08/20 at 18:15; Stop 07/08/20 at 20:14; Status DC Ondansetron HCl (Zofran) 4 mg PRN Q8HRS PRN IV NAUSEA/VOMITING Last administered on 07/08/20at 23:37; Start 07/08/20 at 18:30; Stop 07/09/20 at 18:29 Fentanyl Citrate (Fentanyl 2ml Vial) 50 mcg PRN Q1HR PRN IV PAIN; Start 07/08/20 at 18:30; Stop 07/09/20 at 18:29 Enoxaparin Sodium (Lovenox Per Pharmacy Prophylaxis Dosing) 1 each PRN DAILY PRN MC SEE COMMENTS; Start 07/08/20 at 20:45 Vitamin B Complex (Folbic Tablet) 1 tab DAILY PO Last administered on 07/09/20at 08:39; Start 07/09/20 at 09:00 Ascorbic Acid (Vitamin C) 500 mg DAILY PO Last administered on 07/09/20at 08:40; Start 07/09/20 at 09:00 Zinc Sulfate (Orazinc) 220 mg DAILY PO Last administered on 07/09/20 08:40; Start 07/09/20 at 09:00 Metoprolol Tartrate (Lopressor) 25 mg BID PO Last administered on 07/09/20 08:40; Start 07/08/20 at 21:00 Enoxaparin Sodium (Lovenox 40mg Syringe) 40 mg Q24H SQ Last administered on 07/08/20 22:50; Start 07/08/20 at 21:00 Quetiapine Fumarate (SEROquel) 100 mg HS PO Last administered on 07/08/20 23:27; Start 07/08/20 at 21:00 Vancomycin HCl 1.5 gm/Sodium Chloride 500 ml @ 250 mls/hr Q12H IV Last administered on 07/09/20 05:10; Start 07/09/20 at 06:00 Vancomycin HCl (Vancomycin Trough Level) 1 each 1X ONCE MC ; Start 07/10/20 at 05:30; Stop 07/10/20 at 05:31 Acetaminophen (Tylenol) 650 mg PRN Q6HRS PRN PO FEVER > 100.3'F Last administered on 07/08/20 22:47; Start 07/08/20 at 22:15 Ceftriaxone Sodium (Rocephin) 2 gm Q24H IVP Last administered on 07/08/20 23:27; Start 07/08/20 at 22:30 Active Scripts Active Reported Unable To Obtain Meds From Prior To Admit (Info) Each 1 Each MC Allergies Allergies: Coded Allergies: No Known Drug Allergies (Unverified , 05/17/19) Physical Exam General: Alert, Oriented X3, Cooperative, moderate distress Abdomen: Soft MUSCULOSKELETAL: Abnormal exam of right (right foot painful and swollen on dorsum of foot. No reported injury. Patient states that he is able to ambulate and has free movement) Vitals VITALS Vital Signs Date Time Temp Pulse Resp B/P (MAP) Pulse Ox O2 Delivery O2 Flow Rate FiO2 07/09/20 08:40 89 105/70 07/09/20 07:00 98.5 18 99 Room Air 98.5 Labs Labs Laboratory Tests Test 07/08/20 16:20 07/08/20 20:46 07/09/20 05:50 White Blood Count 9.3 x10^3/uL (4.0-11.0) Red Blood Count 3.30 x10^6/uL (4.30-5.70) Hemoglobin 11.6 g/dL (13.0-17.5) Hematocrit 33.3 % (39.0-53.0) Mean Corpuscular Volume 101 fL (79-100) Mean Corpuscular Hemoglobin 35 pg (25-35) Mean Corpuscular Hemoglobin Concent 35 g/dL (31-37) Red Cell Distribution Width 12.4 % (11.5-14.5) Platelet Count 210 x10^3/uL (140-400) Neutrophils (%) (Auto) 79 % (31-73) Lymphocytes (%) (Auto) 12 % (24-48) Monocytes (%) (Auto) 8 % (0-9) Eosinophils (%) (Auto) 0 % (0-3) Basophils (%) (Auto) 1 % (0-3) Neutrophils # (Auto) 7.3 x10^3/uL (1.8-7.7) Lymphocytes # (Auto) 1.1 x10^3/uL (1.0-4.8) Monocytes # (Auto) 0.8 x10^3/uL (0.0-1.1) Eosinophils # (Auto) 0.0 x10^3/uL (0.0-0.7) Basophils # (Auto) 0.1 x10^3/uL (0.0-0.2) Sodium Level 130 mmol/L (136-145) Potassium Level 4.1 mmol/L (3.5-5.1) Chloride Level 92 mmol/L (98-107) Carbon Dioxide Level 29 mmol/L (21-32) Anion Gap 9 (6-14) Blood Urea Nitrogen 7 mg/dL (8-26) Creatinine 0.7 mg/dL (0.7-1.3) 0.8 mg/dL (0.7-1.3) Estimated GFR (Cockcroft-Gault) 145.6 124.8 BUN/Creatinine Ratio 10 (6-20) Glucose Level 83 mg/dL (70-99) Calcium Level 8.5 mg/dL (8.5-10.1) Total Bilirubin 1.8 mg/dL (0.2-1.0) Aspartate Amino Transf (AST/SGOT) 32 U/L (15-37) Alanine Aminotransferase (ALT/SGPT) 20 U/L (16-63) Alkaline Phosphatase 71 U/L (46-116) JN-Kco-K-Type Natriuretic Peptide 26 pg/mL (0-124) Total Protein 7.7 g/dL (6.4-8.2) Albumin 3.2 g/dL (3.4-5.0) Albumin/Globulin Ratio 0.7 (1.0-1.7) Urine Collection Type Unknown Urine Color [place] Urine Clarity Cloudy Urine pH (<5.0-8.0) Urine Specific [place] 1.030 (1.000-1.030) Urine Protein mg/dL (NEG-TRACE) Urine Glucose (UA) mg/dL (NEG) Urine Ketones (Stick) mg/dL (NEG) Urine Blood (NEG) Urine Nitrite (NEG) Urine Bilirubin (NEG) Urine Urobilinogen Dipstick mg/dL (0.2 mg/dL) Urine Leukocyte Esterase (NEG) Urine RBC 1-2 /HPF (0-2) Urine WBC 20-40 /HPF (0-4) Urine Squamous Epithelial Cells Few /LPF Urine Amorphous Sediment Present /HPF Urine Bacteria Few /HPF (0-FEW) Urine Mucus Mod /LPF Urine Opiates Screen Neg (NEG) Urine Methadone Screen Neg (NEG) Urine Barbiturates Neg (NEG) Urine Phencyclidine Screen Neg (NEG) Urine Amphetamine/Methamphetamine Neg (NEG) Urine Benzodiazepines Screen Neg (NEG) Urine Cocaine Screen Neg (NEG) Urine Cannabinoids Screen Pos (NEG) Urine Ethyl Alcohol Neg (NEG) Laboratory Tests Test 07/08/20 16:20 07/08/20 20:46 07/09/20 05:50 White Blood Count 9.3 x10^3/uL (4.0-11.0) Red Blood Count 3.30 x10^6/uL (4.30-5.70) Hemoglobin 11.6 g/dL (13.0-17.5) Hematocrit 33.3 % (39.0-53.0) Mean Corpuscular Volume 101 fL (79-100) Mean Corpuscular Hemoglobin 35 pg (25-35) Mean Corpuscular Hemoglobin Concent 35 g/dL (31-37) Red Cell Distribution Width 12.4 % (11.5-14.5) Platelet Count 210 x10^3/uL (140-400) Neutrophils (%) (Auto) 79 % (31-73) Lymphocytes (%) (Auto) 12 % (24-48) Monocytes (%) (Auto) 8 % (0-9) Eosinophils (%) (Auto) 0 % (0-3) Basophils (%) (Auto) 1 % (0-3) Neutrophils # (Auto) 7.3 x10^3/uL (1.8-7.7) Lymphocytes # (Auto) 1.1 x10^3/uL (1.0-4.8) Monocytes # (Auto) 0.8 x10^3/uL (0.0-1.1) Eosinophils # (Auto) 0.0 x10^3/uL (0.0-0.7) Basophils # (Auto) 0.1 x10^3/uL (0.0-0.2) Sodium Level 130 mmol/L (136-145) Potassium Level 4.1 mmol/L (3.5-5.1) Chloride Level 92 mmol/L (98-107) Carbon Dioxide Level 29 mmol/L (21-32) Anion Gap 9 (6-14) Blood Urea Nitrogen 7 mg/dL (8-26) Creatinine 0.7 mg/dL (0.7-1.3) 0.8 mg/dL (0.7-1.3) Estimated GFR (Cockcroft-Gault) 145.6 124.8 BUN/Creatinine Ratio 10 (6-20) Glucose Level 83 mg/dL (70-99) Calcium Level 8.5 mg/dL (8.5-10.1) Total Bilirubin 1.8 mg/dL (0.2-1.0) Aspartate Amino Transf (AST/SGOT) 32 U/L (15-37) Alanine Aminotransferase (ALT/SGPT) 20 U/L (16-63) Alkaline Phosphatase 71 U/L (46-116) TI-Vir-V-Type Natriuretic Peptide 26 pg/mL (0-124) Total Protein 7.7 g/dL (6.4-8.2) Albumin 3.2 g/dL (3.4-5.0) Albumin/Globulin Ratio 0.7 (1.0-1.7) Urine Collection Type Unknown Urine Color [place] Urine Clarity Cloudy Urine pH (<5.0-8.0) Urine Specific [place] 1.030 (1.000-1.030) Urine Protein mg/dL (NEG-TRACE) Urine Glucose (UA) mg/dL (NEG) Urine Ketones (Stick) mg/dL (NEG) Urine Blood (NEG) Urine Nitrite (NEG) Urine Bilirubin (NEG) Urine Urobilinogen Dipstick mg/dL (0.2 mg/dL) Urine Leukocyte Esterase (NEG) Urine RBC 1-2 /HPF (0-2) Urine WBC 20-40 /HPF (0-4) Urine Squamous Epithelial Cells Few /LPF Urine Amorphous Sediment Present /HPF Urine Bacteria Few /HPF (0-FEW) Urine Mucus Mod /LPF Urine Opiates Screen Neg (NEG) Urine Methadone Screen Neg (NEG) Urine Barbiturates Neg (NEG) Urine Phencyclidine Screen Neg (NEG) Urine Amphetamine/Methamphetamine Neg (NEG) Urine Benzodiazepines Screen Neg (NEG) Urine Cocaine Screen Neg (NEG) Urine Cannabinoids Screen Pos (NEG) Urine Ethyl Alcohol Neg (NEG) Images Images CT shows mildly displaced pubic rami, superiorly and inferiorly as well as sacral ala. Assessment/Plan Assessment/Plan Patient reports injuries occurred 3 weeks ago and has been ambulating after falling down stairs at home. No surgery recommended with pelvic fractures and will discuss with staff regarding right foot pain. NICOLE MCKEON APRN Jul 09, 2020 09:23
--- NOTE | 2020-07-09 09:59 | PDOC ---
PROGRESS NOTES Date of Service: DATE: 07/09/20 TIME: 09:59 Chief Complaint Chief Complaint VTE Prophylaxis Ordered VTE Prophylaxis Devices: No VTE Pharmacological Prophylaxi: Yes IMPRESSION Assessment/Plan fall, leg pain and hip pain pelvis fracure, pain control PT and OT Subacute appearing fractures involving the right inferior and superior pubic rami, minimally displaced. Minimally displaced right sacral devin fractures also noted. LE edema and cellulitis, VANCO iv started, schizophrenia homeless mild malnutrition, admit D/W RN Justicifation of Admission Dx: Justicifation of Admission Dx: Justifications for Admission: Justification of Admission Dx: N/A History of Present Illness History of Present Illness History of Present Illness History of Present Illness Mr. Pulido, is a 49 year old male who presents with states he fell down 8 stairs 2 weeks ago but did not seek any medical care. He is disheveled and appears to have poor self care. Noted back pain and he thinks that he hit his head. He is here today complaining of bilateral lower extremity pain, bilateral lower feet swelling Pain 8/10./ noted edmea to feet and ankles and is tender Patient has a history of schizophrenia, and appears homeless Past Medical History Cardiovascular: HTN Psych: Psychosis, Schizophrenia Past Surgical History Past Surgical History: No pertinent history Family History Family History: High Cholestrol, Hypertension Social History Smoke: <1 pack per day ALCOHOL: none Drugs: Other Vitals Vitals Vital Signs Date Time Temp Pulse Resp B/P (MAP) Pulse Ox O2 Delivery O2 Flow Rate FiO2 07/09/20 08:40 89 105/70 07/09/20 07:00 98.5 18 99 Room Air 98.5 Physical Exam General: Alert, Oriented X3, Cooperative, moderate distress Heart: Regular rate Lungs: Clear Abdomen: Normal bowel sounds, Soft Extremities: No clubbing, No cyanosis, Other (2+ pedal edema) Skin: Other (erythema and edema left ankle worse than right, very poor nail care) Labs LABS Examination: Bilateral venous Doppler Indication: Leg swelling Technique: Ultrasound evaluation of the bilateral lower extremities was performed from the groin to the upper calf with kent scale, spectral and color doppler evaluation. Findings: There is normal venous flow and compressibility of bilateral common femoral veins, femoral veins, popliteal veins, and visualized proximal calf veins. Of note, the calf veins are not well seen due to soft tissue swelling. Mildly prominent lymph nodes in the left inguinal region, possibly reactive. Impression: No evidence for deep vein thrombosis of bilateral lower extremities from the level of the calf veins to the groins. Electronically signed by: Kit Terrazas MD (07/08/2020 7:27 PM) [facility] DICTATED and SIGNED BY: KIT TERRAZAS MD DATE: 07/08/201926 Exam: CT pelvis without contrast INDICATION: Possible fracture. Fall 2 weeks ago TECHNIQUE: Sequential axial images through the pelvis obtained without IV contrast. Sagittal and coronal reformatted images were reconstructed from the axial data and reviewed. Comparisons: Contrast same day FINDINGS: There is a mildly displaced fracture involving the inferior and superior right pubic rami with mild surrounding callus formation. Additionally, there is a nondisplaced right sacral ala fracture. Visualized intrapelvic structures are unremarkable. Joint spaces are well-maintained. Visualized soft tissues of the lower extremities are unremarkable. IMPRESSION: 1. Subacute appearing fractures involving the right inferior and superior pubic rami, minimally displaced. 2. Minimally displaced right sacral devin fractures also noted. Exposure: One or more of the following in the visualized dose reduction techniques were utilized for this examination: 1. Automated exposure control 2. Adjustment of the MA and/or KV according to patient size 3. Use of iterative of reconstructive technique Electronically signed by: Alfred Greenfield MD (07/08/2020 5:13 PM) [id number] DICTATED and SIGNED BY: ALFRED GREENFIELD MD Laboratory Tests Test 07/08/20 16:20 07/08/20 20:46 07/09/20 05:50 White Blood Count 9.3 x10^3/uL (4.0-11.0) Red Blood Count 3.30 x10^6/uL (4.30-5.70) Hemoglobin 11.6 g/dL (13.0-17.5) Hematocrit 33.3 % (39.0-53.0) Mean Corpuscular Volume 101 fL (79-100) Mean Corpuscular Hemoglobin 35 pg (25-35) Mean Corpuscular Hemoglobin Concent 35 g/dL (31-37) Red Cell Distribution Width 12.4 % (11.5-14.5) Platelet Count 210 x10^3/uL (140-400) Neutrophils (%) (Auto) 79 % (31-73) Lymphocytes (%) (Auto) 12 % (24-48) Monocytes (%) (Auto) 8 % (0-9) Eosinophils (%) (Auto) 0 % (0-3) Basophils (%) (Auto) 1 % (0-3) Neutrophils # (Auto) 7.3 x10^3/uL (1.8-7.7) Lymphocytes # (Auto) 1.1 x10^3/uL (1.0-4.8) Monocytes # (Auto) 0.8 x10^3/uL (0.0-1.1) Eosinophils # (Auto) 0.0 x10^3/uL (0.0-0.7) Basophils # (Auto) 0.1 x10^3/uL (0.0-0.2) Sodium Level 130 mmol/L (136-145) Potassium Level 4.1 mmol/L (3.5-5.1) Chloride Level 92 mmol/L (98-107) Carbon Dioxide Level 29 mmol/L (21-32) Anion Gap 9 (6-14) Blood Urea Nitrogen 7 mg/dL (8-26) Creatinine 0.7 mg/dL (0.7-1.3) 0.8 mg/dL (0.7-1.3) Estimated GFR (Cockcroft-Gault) 145.6 124.8 BUN/Creatinine Ratio 10 (6-20) Glucose Level 83 mg/dL (70-99) Calcium Level 8.5 mg/dL (8.5-10.1) Total Bilirubin 1.8 mg/dL (0.2-1.0) Aspartate Amino Transf (AST/SGOT) 32 U/L (15-37) Alanine Aminotransferase (ALT/SGPT) 20 U/L (16-63) Alkaline Phosphatase 71 U/L (46-116) KR-Gls-B-Type Natriuretic Peptide 26 pg/mL (0-124) Total Protein 7.7 g/dL (6.4-8.2) Albumin 3.2 g/dL (3.4-5.0) Albumin/Globulin Ratio 0.7 (1.0-1.7) Urine Collection Type Unknown Urine Color [place] Urine Clarity Cloudy Urine pH (<5.0-8.0) Urine Specific [place] 1.030 (1.000-1.030) Urine Protein mg/dL (NEG-TRACE) Urine Glucose (UA) mg/dL (NEG) Urine Ketones (Stick) mg/dL (NEG) Urine Blood (NEG) Urine Nitrite (NEG) Urine Bilirubin (NEG) Urine Urobilinogen Dipstick mg/dL (0.2 mg/dL) Urine Leukocyte Esterase (NEG) Urine RBC 1-2 /HPF (0-2) Urine WBC 20-40 /HPF (0-4) Urine Squamous Epithelial Cells Few /LPF Urine Amorphous Sediment Present /HPF Urine Bacteria Few /HPF (0-FEW) Urine Mucus Mod /LPF Urine Opiates Screen Neg (NEG) Urine Methadone Screen Neg (NEG) Urine Barbiturates Neg (NEG) Urine Phencyclidine Screen Neg (NEG) Urine Amphetamine/Methamphetamine Neg (NEG) Urine Benzodiazepines Screen Neg (NEG) Urine Cocaine Screen Neg (NEG) Urine Cannabinoids Screen Pos (NEG) Urine Ethyl Alcohol Neg (NEG) Assessment and Plan Assessmemt and Plan Problems Medical Problems: (1) Cellulitis Status: Acute (2) Pelvic fracture Status: Acute Comment Review of Relevant I have reviewed the following items chuck (where applicable) has been applied. Labs Laboratory Tests Test 07/08/20 16:20 07/08/20 20:46 07/09/20 05:50 White Blood Count 9.3 x10^3/uL (4.0-11.0) Red Blood Count 3.30 x10^6/uL (4.30-5.70) Hemoglobin 11.6 g/dL (13.0-17.5) Hematocrit 33.3 % (39.0-53.0) Mean Corpuscular Volume 101 fL (79-100) Mean Corpuscular Hemoglobin 35 pg (25-35) Mean Corpuscular Hemoglobin Concent 35 g/dL (31-37) Red Cell Distribution Width 12.4 % (11.5-14.5) Platelet Count 210 x10^3/uL (140-400) Neutrophils (%) (Auto) 79 % (31-73) Lymphocytes (%) (Auto) 12 % (24-48) Monocytes (%) (Auto) 8 % (0-9) Eosinophils (%) (Auto) 0 % (0-3) Basophils (%) (Auto) 1 % (0-3) Neutrophils # (Auto) 7.3 x10^3/uL (1.8-7.7) Lymphocytes # (Auto) 1.1 x10^3/uL (1.0-4.8) Monocytes # (Auto) 0.8 x10^3/uL (0.0-1.1) Eosinophils # (Auto) 0.0 x10^3/uL (0.0-0.7) Basophils # (Auto) 0.1 x10^3/uL (0.0-0.2) Sodium Level 130 mmol/L (136-145) Potassium Level 4.1 mmol/L (3.5-5.1) Chloride Level 92 mmol/L (98-107) Carbon Dioxide Level 29 mmol/L (21-32) Anion Gap 9 (6-14) Blood Urea Nitrogen 7 mg/dL (8-26) Creatinine 0.7 mg/dL (0.7-1.3) 0.8 mg/dL (0.7-1.3) Estimated GFR (Cockcroft-Gault) 145.6 124.8 BUN/Creatinine Ratio 10 (6-20) Glucose Level 83 mg/dL (70-99) Calcium Level 8.5 mg/dL (8.5-10.1) Total Bilirubin 1.8 mg/dL (0.2-1.0) Aspartate Amino Transf (AST/SGOT) 32 U/L (15-37) Alanine Aminotransferase (ALT/SGPT) 20 U/L (16-63) Alkaline Phosphatase 71 U/L (46-116) CP-Pad-I-Type Natriuretic Peptide 26 pg/mL (0-124) Total Protein 7.7 g/dL (6.4-8.2) Albumin 3.2 g/dL (3.4-5.0) Albumin/Globulin Ratio 0.7 (1.0-1.7) Urine Collection Type Unknown Urine Color [place] Urine Clarity Cloudy Urine pH (<5.0-8.0) Urine Specific [place] 1.030 (1.000-1.030) Urine Protein mg/dL (NEG-TRACE) Urine Glucose (UA) mg/dL (NEG) Urine Ketones (Stick) mg/dL (NEG) Urine Blood (NEG) Urine Nitrite (NEG) Urine Bilirubin (NEG) Urine Urobilinogen Dipstick mg/dL (0.2 mg/dL) Urine Leukocyte Esterase (NEG) Urine RBC 1-2 /HPF (0-2) Urine WBC 20-40 /HPF (0-4) Urine Squamous Epithelial Cells Few /LPF Urine Amorphous Sediment Present /HPF Urine Bacteria Few /HPF (0-FEW) Urine Mucus Mod /LPF Urine Opiates Screen Neg (NEG) Urine Methadone Screen Neg (NEG) Urine Barbiturates Neg (NEG) Urine Phencyclidine Screen Neg (NEG) Urine Amphetamine/Methamphetamine Neg (NEG) Urine Benzodiazepines Screen Neg (NEG) Urine Cocaine Screen Neg (NEG) Urine Cannabinoids Screen Pos (NEG) Urine Ethyl Alcohol Neg (NEG) Laboratory Tests Test 07/08/20 16:20 07/08/20 20:46 07/09/20 05:50 White Blood Count 9.3 x10^3/uL (4.0-11.0) Red Blood Count 3.30 x10^6/uL (4.30-5.70) Hemoglobin 11.6 g/dL (13.0-17.5) Hematocrit 33.3 % (39.0-53.0) Mean Corpuscular Volume 101 fL (79-100) Mean Corpuscular Hemoglobin 35 pg (25-35) Mean Corpuscular Hemoglobin Concent 35 g/dL (31-37) Red Cell Distribution Width 12.4 % (11.5-14.5) Platelet Count 210 x10^3/uL (140-400) Neutrophils (%) (Auto) 79 % (31-73) Lymphocytes (%) (Auto) 12 % (24-48) Monocytes (%) (Auto) 8 % (0-9) Eosinophils (%) (Auto) 0 % (0-3) Basophils (%) (Auto) 1 % (0-3) Neutrophils # (Auto) 7.3 x10^3/uL (1.8-7.7) Lymphocytes # (Auto) 1.1 x10^3/uL (1.0-4.8) Monocytes # (Auto) 0.8 x10^3/uL (0.0-1.1) Eosinophils # (Auto) 0.0 x10^3/uL (0.0-0.7) Basophils # (Auto) 0.1 x10^3/uL (0.0-0.2) Sodium Level 130 mmol/L (136-145) Potassium Level 4.1 mmol/L (3.5-5.1) Chloride Level 92 mmol/L (98-107) Carbon Dioxide Level 29 mmol/L (21-32) Anion Gap 9 (6-14) Blood Urea Nitrogen 7 mg/dL (8-26) Creatinine 0.7 mg/dL (0.7-1.3) 0.8 mg/dL (0.7-1.3) Estimated GFR (Cockcroft-Gault) 145.6 124.8 BUN/Creatinine Ratio 10 (6-20) Glucose Level 83 mg/dL (70-99) Calcium Level 8.5 mg/dL (8.5-10.1) Total Bilirubin 1.8 mg/dL (0.2-1.0) Aspartate Amino Transf (AST/SGOT) 32 U/L (15-37) Alanine Aminotransferase (ALT/SGPT) 20 U/L (16-63) Alkaline Phosphatase 71 U/L (46-116) KU-Mab-N-Type Natriuretic Peptide 26 pg/mL (0-124) Total Protein 7.7 g/dL (6.4-8.2) Albumin 3.2 g/dL (3.4-5.0) Albumin/Globulin Ratio 0.7 (1.0-1.7) Urine Collection Type Unknown Urine Color [place] Urine Clarity Cloudy Urine pH (<5.0-8.0) Urine Specific [place] 1.030 (1.000-1.030) Urine Protein mg/dL (NEG-TRACE) Urine Glucose (UA) mg/dL (NEG) Urine Ketones (Stick) mg/dL (NEG) Urine Blood (NEG) Urine Nitrite (NEG) Urine Bilirubin (NEG) Urine Urobilinogen Dipstick mg/dL (0.2 mg/dL) Urine Leukocyte Esterase (NEG) Urine RBC 1-2 /HPF (0-2) Urine WBC 20-40 /HPF (0-4) Urine Squamous Epithelial Cells Few /LPF Urine Amorphous Sediment Present /HPF Urine Bacteria Few /HPF (0-FEW) Urine Mucus Mod /LPF Urine Opiates Screen Neg (NEG) Urine Methadone Screen Neg (NEG) Urine Barbiturates Neg (NEG) Urine Phencyclidine Screen Neg (NEG) Urine Amphetamine/Methamphetamine Neg (NEG) Urine Benzodiazepines Screen Neg (NEG) Urine Cocaine Screen Neg (NEG) Urine Cannabinoids Screen Pos (NEG) Urine Ethyl Alcohol Neg (NEG) Medications Current Medications Fentanyl Citrate (Fentanyl 2ml Vial) 50 mcg 1X ONCE IVP Last administered on 07/08/20at 17:04; Start 07/08/20 at 17:15; Stop 07/08/20 at 17:16; Status DC Vancomycin HCl (Vanco Per Pharmacy) 1 each PRN DAILY PRN MC SEE COMMENTS Last administered on 07/08/20at 20:44; Start 07/08/20 at 18:00 Vancomycin HCl 2 gm/Sodium Chloride 500 ml @ 250 mls/hr 1X ONCE IV Last administered on 07/08/20at 18:15; Start 07/08/20 at 18:15; Stop 07/08/20 at 20:14; Status DC Ondansetron HCl (Zofran) 4 mg PRN Q8HRS PRN IV NAUSEA/VOMITING Last administered on 07/08/20at 23:37; Start 07/08/20 at 18:30; Stop 07/09/20 at 18:29 Fentanyl Citrate (Fentanyl 2ml Vial) 50 mcg PRN Q1HR PRN IV PAIN; Start 07/08/20 at 18:30; Stop 07/09/20 at 18:29 Enoxaparin Sodium (Lovenox Per Pharmacy Prophylaxis Dosing) 1 each PRN DAILY PRN MC SEE COMMENTS; Start 07/08/20 at 20:45 Vitamin B Complex (Folbic Tablet) 1 tab DAILY PO Last administered on 07/09/20at 08:39; Start 07/09/20 at 09:00 Ascorbic Acid (Vitamin C) 500 mg DAILY PO Last administered on 07/09/20at 08:40; Start 07/09/20 at 09:00 Zinc Sulfate (Orazinc) 220 mg DAILY PO Last administered on 07/09/20at 08:40; Start 07/09/20 at 09:00 Metoprolol Tartrate (Lopressor) 25 mg BID PO Last administered on 07/09/20at 08:40; Start 07/08/20 at 21:00 Enoxaparin Sodium (Lovenox 40mg Syringe) 40 mg Q24H SQ Last administered on 07/08/20at 22:50; Start 07/08/20 at 21:00 Quetiapine Fumarate (SEROquel) 100 mg HS PO Last administered on 07/08/20at 23:27; Start 07/08/20 at 21:00 Vancomycin HCl 1.5 gm/Sodium Chloride 500 ml @ 250 mls/hr Q12H IV Last administered on 07/09/20at 05:10; Start 07/09/20 at 06:00 Vancomycin HCl (Vancomycin Trough Level) 1 each 1X ONCE MC ; Start 07/10/20 at 05:30; Stop 07/10/20 at 05:31 Acetaminophen (Tylenol) 650 mg PRN Q6HRS PRN PO FEVER > 100.3'F Last administered on 07/08/20at 22:47; Start 07/08/20 at 22:15 Ceftriaxone Sodium (Rocephin) 2 gm Q24H IVP Last administered on 07/08/20at 23:27; Start 07/08/20 at 22:30 Active Scripts Active Reported Unable To Obtain Meds From Prior To Admit (Info) Each 1 Each Vitals/I & O Vital Sign - Last 24 Hours 07/08/20 07/08/20 07/08/20 07/08/20 15:10 15:10 16:10 17:01 Temp 97.5 97.5 Pulse 112 114 112 113 Resp 20 B/P (MAP) 164/87 (112) 164/87 (112) 167/79 (108) 153/89 (110) Pulse Ox 100 100 100 100 O2 Delivery Room Air Room Air Room Air Room Air 07/08/20 07/08/20 07/08/20 07/08/20 17:04 18:01 18:31 19:01 Pulse 108 112 112 Resp 18 B/P (MAP) 161/84 (109) 179/84 (115) 153/77 (102) Pulse Ox 99 100 98 96 O2 Delivery Room Air Room Air Room Air Room Air 07/08/20 07/08/20 07/08/20 07/08/20 19:31 20:01 20:31 21:01 Pulse 110 110 112 112 B/P (MAP) 120/70 (87) 123/68 (86) 131/65 (87) 129/86 (100) Pulse Ox 96 100 100 100 O2 Delivery Room Air Room Air Room Air Room Air 07/08/20 07/08/20 07/08/20 07/08/20 21:20 21:27 22:49 23:00 Temp 100.5 99.1 100.5 99.1 Pulse 112 112 115 Resp 20 20 B/P (MAP) 121/69 (86) 121/69 111/72 (85) Pulse Ox 99 95 O2 Delivery Room Air Room Air Room Air 07/09/20 07/09/20 07/09/20 03:00 07:00 08:40 Temp 98.6 98.5 98.6 98.5 Pulse 92 89 89 Resp 20 18 B/P (MAP) 108/72 (84) 105/70 (82) 105/70 Pulse Ox 98 99 O2 Delivery Room Air Room Air Intake and Output 07/08/20 07/08/20 07/09/20 15:00 23:00 07:00 Intake Total 400 ml Output Total 300 ml Balance 100 ml Justicifation of Admission Dx: Justifications for Admission: Justification of Admission Dx: Yes Fracture: Fracture PEPPER MOREIRA MD Jul 09, 2020 09:59
[2020-07-09 11:00] VITALS: BP 118/80
--- NOTE | 2020-07-09 13:26 | NUR ---
SW following. Reviewed chart and discussed with RN. Pt from home and is on room air. Spoke with pt and pt's brother Dany who live together in a duplex. SHYLA discussed recommendation for SNU. Pt and pt's brother refusing SNU and HH but agreeable to out-patient PT/OT at [facility] on discharge. SHYLA spoke with Renata in out-patient therapy and they accept pt's insurance ([employer]). Pt is on IV Vancomycin and Rocephin. SW to continue following.
[2020-07-09] MEDS: VANCOMYCIN PER PHARMACY MC PRN (14:30)
[2020-07-09 15:00] VITALS: BP 112/75
[2020-07-09 19:00] VITALS: BP 105/69
[2020-07-09] MEDS: LACTOBACILLUS RHAMNOSUS GG 1 CAPSULE. PO SCH (20:39)
[2020-07-09] MEDS: QUEtiapine 100 MG TABLET. PO SCH (20:39)
[2020-07-09] MEDS: cefTRIAXone IV Push 2 GM VIAL. IVP SCH (20:39)
[2020-07-09] MEDS: ENOXAPARIN 40 MG/0.4 ML SYRINGE. SQ SCH (20:40)
[2020-07-09] MEDS: ACETAMINOPHEN 325 MG TABLET. PO PRN (20:48)
[2020-07-09 22:36] VITALS: BP 106/58
[2020-07-10 02:40] VITALS: BP 118/78
[2020-07-10 06:47] LABS: BASO % 1 % (0-3); EOS # 0.1 x10^3/uL (0.0-0.7); EOS % 2 % (0-3); HEMATOCRIT 30.7 % (39.0-53.0); HEMOGLOBIN 10.2 g/dL (13.0-17.5); LYMPH # 1.2 x10^3/uL (1.0-4.8); LYMPH % 28 % (24-48); MEAN CORPUSCULAR HEMOGLOBIN 34 pg (25-35); MEAN CORPUSCULAR HGB CONC 33 g/dL (31-37); MEAN CORPUSCULAR VOLUME 102 fL (79-100); MONO # 0.4 x10^3/uL (0.0-1.1); MONO % 9 % (0-9); NEUT # 2.6 x10^3/uL (1.8-7.7); NEUT % 61 % (31-73); PLATELET COUNT 204 x10^3/uL (140-400); RED CELL DISTRIBUTION WIDTH 12.7 % (11.5-14.5); WHITE BLOOD COUNT 4.2 x10^3/uL (4.0-11.0)
[2020-07-10 07:02] LABS: VANC TR 6.1 mcg/mL (10.0-20.0)
[2020-07-10 07:06] LABS: ALBUMIN 2.3 g/dL (3.4-5.0); ALBUMIN/GLOBULIN RATIO 0.5 (1.0-1.7); CALCIUM 8.3 mg/dL (8.5-10.1); CREATININE 0.6 mg/dL (0.7-1.3); TOTAL BILIRUBIN 0.6 mg/dL (0.2-1.0); TOTAL PROTEIN 6.5 g/dL (6.4-8.2)
[2020-07-10 07:15] VITALS: BP 118/71
[2020-07-10 07:22] LABS: POTASSIUM 2.9 mmol/L (3.5-5.1)
[2020-07-10] MEDS: VANCOMYCIN PER PHARMACY MC PRN (07:47)
--- NOTE | 2020-07-10 08:03 | NUR ---
Pharmacy Vancomycin Dosing Note S:Consulted to monitor and dose vancomycin started 07/08/20. O:CONI SALDIVAR is a 49 year old M with Cellulitis . Height: 5 feet, 11 inches Weight: 86.0 kg [place] Body Weight: 75.30 Adjusted Body Weight: 79.58 Dosing Weight: Actual Other Antibiotics: Ceftriaxone LABS: Last BUN: 5 Last Creatinine: 0.6 Creatinine Clearance: >120 mL/min Last WBC: 4.2 Last Procalcitonin: - Tmax (past 24 hours): 99.2 Microbiology: - I/O: 1500/900, 2 VOIDS Drug Levels: Last Trough level: 6.1 on 07/10/20 at 0530 Last dose given 07/09/20 at 1727 Vancomycin Dosing: Loading Dose: 2000 mg x1 Dosing Weight: Actual Target Trough: 10-20 A: Based on: LOW TROUGH, P: 1. INITIATE NEW DOSE OF Vancomycin 1250 mg IV q8h 2. Follow up Trough level on 07/11/20 at 0800 3. Pharmacy will continue to monitor, follow and adjust therapy as needed. IRMA VALENCIA [facility], 07/10/20 [id number]
--- NOTE | 2020-07-10 08:08 | PDOC ---
PROGRESS NOTES Date of Service: DATE: 07/10/20 TIME: 08:08 Chief Complaint Chief Complaint VTE Prophylaxis Ordered VTE Prophylaxis Devices: No VTE Pharmacological Prophylaxi: Yes discharge dx Assessment/Plan fall, leg pain and hip pain pelvis fracure, pain control PT and OT Subacute appearing fractures involving the right inferior and superior pubic rami, minimally displaced. Minimally displaced right sacral devin fractures also noted. LE edema and cellulitis, po keflex schizophrenia homeless mild malnutrition, admit D/W RN d/c planning 24 min Justicifation of Admission Dx: Justicifation of Admission Dx: Justifications for Admission: Justification of Admission Dx: N/A History of Present Illness History of Present Illness History of Present Illness History of Present Illness Mr. Pulido, is a 49 year old male who presents with states he fell down 8 stairs 2 weeks ago but did not seek any medical care. He is disheveled and appears to have poor self care. Noted back pain and he thinks that he hit his head. He is here today complaining of bilateral lower extremity pain, bilateral lower feet swelling Pain 8/10./ noted edmea to feet and ankles and is tender Patient has a history of schizophrenia, and appears homeless Past Medical History Cardiovascular: HTN Psych: Psychosis, Schizophrenia Past Surgical History Past Surgical History: No pertinent history Family History Family History: High Cholestrol, Hypertension Social History Smoke: <1 pack per day ALCOHOL: none Drugs: Other Vitals Vitals Vital Signs Date Time Temp Pulse Resp B/P (MAP) Pulse Ox O2 Delivery O2 Flow Rate FiO2 07/10/20 02:40 98.4 77 21 118/78 (91) 98 Room Air 98.4 Physical Exam General: Alert, Oriented X3, Cooperative, moderate distress Heart: Regular rate Lungs: Clear Abdomen: Normal bowel sounds, Soft Extremities: No clubbing, No cyanosis, Other (2+ pedal edema) Skin: Other (erythema and edema left ankle worse than right, very poor nail care) Labs LABS Examination: Bilateral venous Doppler Indication: Leg swelling Technique: Ultrasound evaluation of the bilateral lower extremities was performed from the groin to the upper calf with kent scale, spectral and color doppler evaluation. Findings: There is normal venous flow and compressibility of bilateral common femoral veins, femoral veins, popliteal veins, and visualized proximal calf veins. Of note, the calf veins are not well seen due to soft tissue swelling. Mildly prominent lymph nodes in the left inguinal region, possibly reactive. Impression: No evidence for deep vein thrombosis of bilateral lower extremities from the level of the calf veins to the groins. Electronically signed by: Kit Terrazas MD (07/08/2020 7:27 PM) [facility] DICTATED and SIGNED BY: KIT TERRAZAS MD DATE: 07/08/201926 Laboratory Tests Test 07/10/20 05:30 White Blood Count 4.2 x10^3/uL (4.0-11.0) Red Blood Count 3.00 x10^6/uL (4.30-5.70) Hemoglobin 10.2 g/dL (13.0-17.5) Hematocrit 30.7 % (39.0-53.0) Mean Corpuscular Volume 102 fL (79-100) Mean Corpuscular Hemoglobin 34 pg (25-35) Mean Corpuscular Hemoglobin Concent 33 g/dL (31-37) Red Cell Distribution Width 12.7 % (11.5-14.5) Platelet Count 204 x10^3/uL (140-400) Neutrophils (%) (Auto) 61 % (31-73) Lymphocytes (%) (Auto) 28 % (24-48) Monocytes (%) (Auto) 9 % (0-9) Eosinophils (%) (Auto) 2 % (0-3) Basophils (%) (Auto) 1 % (0-3) Neutrophils # (Auto) 2.6 x10^3/uL (1.8-7.7) Lymphocytes # (Auto) 1.2 x10^3/uL (1.0-4.8) Monocytes # (Auto) 0.4 x10^3/uL (0.0-1.1) Eosinophils # (Auto) 0.1 x10^3/uL (0.0-0.7) Basophils # (Auto) 0.0 x10^3/uL (0.0-0.2) Sodium Level 138 mmol/L (136-145) Potassium Level 2.9 mmol/L (3.5-5.1) Chloride Level 101 mmol/L (98-107) Carbon Dioxide Level 28 mmol/L (21-32) Anion Gap 9 (6-14) Blood Urea Nitrogen 5 mg/dL (8-26) Creatinine 0.6 mg/dL (0.7-1.3) Estimated GFR (Cockcroft-Gault) 174.0 BUN/Creatinine Ratio 8 (6-20) Glucose Level 94 mg/dL (70-99) Calcium Level 8.3 mg/dL (8.5-10.1) Total Bilirubin 0.6 mg/dL (0.2-1.0) Aspartate Amino Transf (AST/SGOT) 21 U/L (15-37) Alanine Aminotransferase (ALT/SGPT) 15 U/L (16-63) Alkaline Phosphatase 52 U/L (46-116) Total Protein 6.5 g/dL (6.4-8.2) Albumin 2.3 g/dL (3.4-5.0) Albumin/Globulin Ratio 0.5 (1.0-1.7) Vancomycin Level Trough 6.1 mcg/mL (10.0-20.0) Vancomycin Last Dose Date 07/09/20 Vancomycin Last Dose Time 1800 Assessment and Plan Assessmemt and Plan Problems Medical Problems: (1) Cellulitis Status: Acute (2) Pelvic fracture Status: Acute Comment Review of Relevant I have reviewed the following items chuck (where applicable) has been applied. Labs Laboratory Tests Test 07/08/20 16:20 07/08/20 20:46 07/09/20 05:50 07/10/20 05:30 White Blood Count 9.3 x10^3/uL (4.0-11.0) 4.2 x10^3/uL (4.0-11.0) Red Blood Count 3.30 x10^6/uL (4.30-5.70) 3.00 x10^6/uL (4.30-5.70) Hemoglobin 11.6 g/dL (13.0-17.5) 10.2 g/dL (13.0-17.5) Hematocrit 33.3 % (39.0-53.0) 30.7 % (39.0-53.0) Mean Corpuscular Volume 101 fL (79-100) 102 fL (79-100) Mean Corpuscular Hemoglobin 35 pg (25-35) 34 pg (25-35) Mean Corpuscular Hemoglobin Concent 35 g/dL (31-37) 33 g/dL (31-37) Red Cell Distribution Width 12.4 % (11.5-14.5) 12.7 % (11.5-14.5) Platelet Count 210 x10^3/uL (140-400) 204 x10^3/uL (140-400) Neutrophils (%) (Auto) 79 % (31-73) 61 % (31-73) Lymphocytes (%) (Auto) 12 % (24-48) 28 % (24-48) Monocytes (%) (Auto) 8 % (0-9) 9 % (0-9) Eosinophils (%) (Auto) 0 % (0-3) 2 % (0-3) Basophils (%) (Auto) 1 % (0-3) 1 % (0-3) Neutrophils # (Auto) 7.3 x10^3/uL (1.8-7.7) 2.6 x10^3/uL (1.8-7.7) Lymphocytes # (Auto) 1.1 x10^3/uL (1.0-4.8) 1.2 x10^3/uL (1.0-4.8) Monocytes # (Auto) 0.8 x10^3/uL (0.0-1.1) 0.4 x10^3/uL (0.0-1.1) Eosinophils # (Auto) 0.0 x10^3/uL (0.0-0.7) 0.1 x10^3/uL (0.0-0.7) Basophils # (Auto) 0.1 x10^3/uL (0.0-0.2) 0.0 x10^3/uL (0.0-0.2) Sodium Level 130 mmol/L (136-145) 138 mmol/L (136-145) Potassium Level 4.1 mmol/L (3.5-5.1) 2.9 mmol/L (3.5-5.1) Chloride Level 92 mmol/L (98-107) 101 mmol/L (98-107) Carbon Dioxide Level 29 mmol/L (21-32) 28 mmol/L (21-32) Anion Gap 9 (6-14) 9 (6-14) Blood Urea Nitrogen 7 mg/dL (8-26) 5 mg/dL (8-26) Creatinine 0.7 mg/dL (0.7-1.3) 0.8 mg/dL (0.7-1.3) 0.6 mg/dL (0.7-1.3) Estimated GFR (Cockcroft-Gault) 145.6 124.8 174.0 BUN/Creatinine Ratio 10 (6-20) 8 (6-20) Glucose Level 83 mg/dL (70-99) 94 mg/dL (70-99) Calcium Level 8.5 mg/dL (8.5-10.1) 8.3 mg/dL (8.5-10.1) Total Bilirubin 1.8 mg/dL (0.2-1.0) 0.6 mg/dL (0.2-1.0) Aspartate Amino Transf (AST/SGOT) 32 U/L (15-37) 21 U/L (15-37) Alanine Aminotransferase (ALT/SGPT) 20 U/L (16-63) 15 U/L (16-63) Alkaline Phosphatase 71 U/L (46-116) 52 U/L (46-116) [id number]-Type Natriuretic Peptide 26 pg/mL (0-124) Total Protein 7.7 g/dL (6.4-8.2) 6.5 g/dL (6.4-8.2) Albumin 3.2 g/dL (3.4-5.0) 2.3 g/dL (3.4-5.0) Albumin/Globulin Ratio 0.7 (1.0-1.7) 0.5 (1.0-1.7) Urine Collection Type Unknown Urine Color [place] Urine Clarity Cloudy Urine pH (<5.0-8.0) Urine Specific [place] 1.030 (1.000-1.030) Urine Protein mg/dL (NEG-TRACE) Urine Glucose (UA) mg/dL (NEG) Urine Ketones (Stick) mg/dL (NEG) Urine Blood (NEG) Urine Nitrite (NEG) Urine Bilirubin (NEG) Urine Urobilinogen Dipstick mg/dL (0.2 mg/dL) Urine Leukocyte Esterase (NEG) Urine RBC 1-2 /HPF (0-2) Urine WBC 20-40 /HPF (0-4) Urine Squamous Epithelial Cells Few /LPF Urine Amorphous Sediment Present /HPF Urine Bacteria Few /HPF (0-FEW) Urine Mucus Mod /LPF Urine Opiates Screen Neg (NEG) Urine Methadone Screen Neg (NEG) Urine Barbiturates Neg (NEG) Urine Phencyclidine Screen Neg (NEG) Urine Amphetamine/Methamphetamine Neg (NEG) Urine Benzodiazepines Screen Neg (NEG) Urine Cocaine Screen Neg (NEG) Urine Cannabinoids Screen Pos (NEG) Urine Ethyl Alcohol Neg (NEG) Vancomycin Level Trough 6.1 mcg/mL (10.0-20.0) Vancomycin Last Dose Date 07/09/20 Vancomycin Last Dose Time 1800 Laboratory Tests Test 07/10/20 05:30 White Blood Count 4.2 x10^3/uL (4.0-11.0) Red Blood Count 3.00 x10^6/uL (4.30-5.70) Hemoglobin 10.2 g/dL (13.0-17.5) Hematocrit 30.7 % (39.0-53.0) Mean Corpuscular Volume 102 fL (79-100) Mean Corpuscular Hemoglobin 34 pg (25-35) Mean Corpuscular Hemoglobin Concent 33 g/dL (31-37) Red Cell Distribution Width 12.7 % (11.5-14.5) Platelet Count 204 x10^3/uL (140-400) Neutrophils (%) (Auto) 61 % (31-73) Lymphocytes (%) (Auto) 28 % (24-48) Monocytes (%) (Auto) 9 % (0-9) Eosinophils (%) (Auto) 2 % (0-3) Basophils (%) (Auto) 1 % (0-3) Neutrophils # (Auto) 2.6 x10^3/uL (1.8-7.7) Lymphocytes # (Auto) 1.2 x10^3/uL (1.0-4.8) Monocytes # (Auto) 0.4 x10^3/uL (0.0-1.1) Eosinophils # (Auto) 0.1 x10^3/uL (0.0-0.7) Basophils # (Auto) 0.0 x10^3/uL (0.0-0.2) Sodium Level 138 mmol/L (136-145) Potassium Level 2.9 mmol/L (3.5-5.1) Chloride Level 101 mmol/L (98-107) Carbon Dioxide Level 28 mmol/L (21-32) Anion Gap 9 (6-14) Blood Urea Nitrogen 5 mg/dL (8-26) Creatinine 0.6 mg/dL (0.7-1.3) Estimated GFR (Cockcroft-Gault) 174.0 BUN/Creatinine Ratio 8 (6-20) Glucose Level 94 mg/dL (70-99) Calcium Level 8.3 mg/dL (8.5-10.1) Total Bilirubin 0.6 mg/dL (0.2-1.0) Aspartate Amino Transf (AST/SGOT) 21 U/L (15-37) Alanine Aminotransferase (ALT/SGPT) 15 U/L (16-63) Alkaline Phosphatase 52 U/L (46-116) Total Protein 6.5 g/dL (6.4-8.2) Albumin 2.3 g/dL (3.4-5.0) Albumin/Globulin Ratio 0.5 (1.0-1.7) Vancomycin Level Trough 6.1 mcg/mL (10.0-20.0) Vancomycin Last Dose Date 07/09/20 Vancomycin Last Dose Time 1800 Microbiology 07/08/20 Blood Culture - Preliminary, Resulted NO GROWTH AFTER 1 DAY Medications Current Medications Fentanyl Citrate (Fentanyl 2ml Vial) 50 mcg 1X ONCE IVP Last administered on 07/08/20at 17:04; Start 07/08/20 at 17:15; Stop 07/08/20 at 17:16; Status DC Vancomycin HCl (Vanco Per Pharmacy) 1 each PRN DAILY PRN MC SEE COMMENTS Last administered on 07/10/20at 07:47; Start 07/08/20 at 18:00 Vancomycin HCl 2 gm/Sodium Chloride 500 ml @ 250 mls/hr 1X ONCE IV Last administered on 07/08/20at 18:15; Start 07/08/20 at 18:15; Stop 07/08/20 at 20:14; Status DC Ondansetron HCl (Zofran) 4 mg PRN Q8HRS PRN IV NAUSEA/VOMITING Last administered on 07/08/20at 23:37; Start 07/08/20 at 18:30; Stop 07/09/20 at 18:29; Status DC Fentanyl Citrate (Fentanyl 2ml Vial) 50 mcg PRN Q1HR PRN IV PAIN; Start 07/08/20 at 18:30; Stop 07/09/20 at 18:29; Status DC Enoxaparin Sodium (Lovenox Per Pharmacy Prophylaxis Dosing) 1 each PRN DAILY PRN MC SEE COMMENTS; Start 07/08/20 at 20:45 Vitamin B Complex (Folbic Tablet) 1 tab DAILY PO Last administered on 07/09/20 08:39; Start 07/09/20 at 09:00 Ascorbic Acid (Vitamin C) 500 mg DAILY PO Last administered on 07/09/20 08:40; Start 07/09/20 at 09:00 Zinc Sulfate (Orazinc) 220 mg DAILY PO Last administered on 07/09/20 08:40; Start 07/09/20 at 09:00 Metoprolol Tartrate (Lopressor) 25 mg BID PO Last administered on 07/09/20 20:40; Start 07/08/20 at 21:00 Enoxaparin Sodium (Lovenox 40mg Syringe) 40 mg Q24H SQ Last administered on 07/09/20 20:40; Start 07/08/20 at 21:00 Quetiapine Fumarate (SEROquel) 100 mg HS PO Last administered on 07/09/20 20:39; Start 07/08/20 at 21:00 Vancomycin HCl 1.5 gm/Sodium Chloride 500 ml @ 250 mls/hr Q12H IV Last administered on 07/09/20 17:27; Start 07/09/20 at 06:00; Stop 07/10/20 at 07:35; Status DC Vancomycin HCl (Vancomycin Trough Level) 1 each 1X ONCE MC Last administered on 07/10/20at 05:30; Start 07/10/20 at 05:30; Stop 07/10/20 at 05:31; Status DC Acetaminophen (Tylenol) 650 mg PRN Q6HRS PRN PO FEVER > 100.3'F Last administered on 07/09/20 20:48; Start 07/08/20 at 22:15 Ceftriaxone Sodium (Rocephin) 2 gm Q24H IVP Last administered on 07/09/20 20:39; Start 07/08/20 at 22:30 Lactobacillus Rhamnosus (Culturelle) 1 cap BID PO Last administered on 07/09/20 20:39; Start 07/09/20 at 21:00 Potassium Bicarbonate (Potassium Effervescent Tablet) 40 meq Q4H PO ; Start 07/10/20 at 07:45; Stop 07/10/20 at 11:46 Vancomycin HCl 1.25 gm/Sodium Chloride 250 ml @ 167 mls/hr Q8H IV ; Start 07/10/20 at 08:30 Vancomycin HCl (Vancomycin Trough Level) 1 each 1X ONCE MC ; Start 07/11/20 at 08:00; Stop 07/11/20 at 08:01 Active Scripts Active Reported Unable To Obtain Meds From Prior To Admit (Info) Each 1 Each Vitals/I & O Vital Sign - Last 24 Hours 07/09/20 07/09/20 07/09/20 07/09/20 08:40 11:00 15:00 19:00 Temp 98.4 97.9 99.2 98.4 97.9 99.2 Pulse 89 87 101 90 Resp 20 18 22 B/P (MAP) 105/70 118/80 (93) 112/75 (87) 105/69 (81) Pulse Ox 98 93 96 O2 Delivery Room Air Room Air Room Air 07/09/20 07/09/20 07/09/20 07/10/20 19:15 20:40 22:36 02:40 Temp 98.1 98.4 98.1 98.4 Pulse 90 87 77 Resp 20 21 B/P (MAP) 105/69 106/58 (74) 118/78 (91) Pulse Ox 97 98 O2 Delivery Room Air Room Air Room Air Intake and Output 07/09/20 07/09/20 07/10/20 15:00 23:00 07:00 Intake Total 120 ml 900 ml 480 ml Output Total 900 ml Balance 120 ml 900 ml -420 ml Justicifation of Admission Dx: Justifications for Admission: Justification of Admission Dx: Yes Fracture: Fracture PEPPER MOREIRA MD Jul 10, 2020 08:08
[2020-07-10] MEDS: ZINC SULFATE 220 MG CAPSULE. PO SCH (09:14)
[2020-07-10] MEDS: POTASSIUM BICARB 20 MEQ EFFERVESCENT TABLET. PO SCH ×2 (09:14→12:00)
[2020-07-10] MEDS: METOPROLOL TART IMMED RELEASE 25 MG TABLET. PO SCH (09:15)
[2020-07-10] MEDS: ASCORBIC ACID 500 MG TABLET PO SCH (09:15)
[2020-07-10] MEDS: VITAMIN B12,B9,B6 COMPLEX 1 TABLET. PO SCH (09:15)
[2020-07-10] MEDS: VANCOMYCIN 1.25 GM in IV NORMAL SALINE 250ML 250 ML IV SCH ×2 (09:15→16:30)
[2020-07-10] MEDS: LACTOBACILLUS RHAMNOSUS GG 1 CAPSULE. PO SCH (09:15)
[2020-07-10 11:00] VITALS: BP 115/80
[2020-07-10] MEDS ORDERED: ELECTROLYTE (NON-ICU) PROTOCOL MC PRN (11:15)
[2020-07-10] MEDS ORDERED: POTASSIUM BICARB 20 MEQ EFFERVESCENT TABLET. PO SCH (11:15)
[2020-07-10] MEDS ORDERED: MAGNESIUM SULFATE 2GM 50 ML IV PRN (11:15)
[2020-07-10] MEDS ORDERED: POTASSIUM BICARB 20 MEQ EFFERVESCENT TABLET. FT ONE (11:30)
--- NOTE | 2020-07-10 12:34 | PDOC ---
Infectious Disease Note Vital Signs: Vital Signs Vital Signs Date Time Temp Pulse Resp B/P (MAP) Pulse Ox O2 Delivery O2 Flow Rate FiO2 07/10/20 11:00 98.0 87 16 115/80 (92) 99 Room Air 98.0 Medications: Inpatient Meds: Current Medications Medications (Trade) Dose Ordered Sig/Erik Start Time Stop Time Status Last Admin Dose Admin Acetaminophen (Tylenol) 650 mg PRN Q6HRS PRN 07/08/20 22:15 07/09/20 20:48 650 MG Ascorbic Acid (Vitamin C) 500 mg DAILY 07/09/20 09:00 07/10/20 09:15 500 MG Ceftriaxone Sodium (Rocephin) 2 gm Q24H 07/08/20 22:30 07/09/20 20:39 2 GM Enoxaparin Sodium (Lovenox 40mg Syringe) 40 mg Q24H 07/08/20 21:00 07/09/20 20:40 40 MG Enoxaparin Sodium (Lovenox Per Pharmacy Prophylaxis Dosing) 1 each PRN DAILY PRN 07/08/20 20:45 Fentanyl Citrate (Fentanyl 2ml Vial) 50 mcg PRN Q1HR PRN 07/08/20 18:30 07/09/20 18:29 DC Info (Non-Icu Electrolyte Protocol) 1 ea CONT PRN PRN 07/10/20 11:15 Lactobacillus Rhamnosus (Culturelle) 1 cap BID 07/09/20 21:00 07/10/20 09:15 1 CAP Magnesium Sulfate 50 ml @ 25 mls/hr PRN DAILY PRN 07/10/20 11:15 Metoprolol Tartrate (Lopressor) 25 mg BID 07/08/20 21:00 07/10/20 09:15 25 MG Ondansetron HCl (Zofran) 4 mg PRN Q8HRS PRN 07/08/20 18:30 07/09/20 18:29 DC 07/08/20 23:37 4 MG Potassium Bicarbonate (Potassium Effervescent Tablet) 40 meq Q4H 07/10/20 11:15 07/10/20 15:16 UNV Potassium Phos/ Sodium Phos (Phos-Nak) 1 pkt PRN BID PRN 07/10/20 21:00 Quetiapine Fumarate (SEROquel) 100 mg HS 8/11/20 21:00 07/09/20 20:39 100 MG Vancomycin HCl (Vanco Per Pharmacy) 1 each PRN DAILY PRN 07/08/20 18:00 07/10/20 07:47 1 EACH Vancomycin HCl (Vancomycin Trough Level) 1 each 1X ONCE 07/11/20 08:00 07/11/20 08:01 Vancomycin HCl 1.25 gm/Sodium Chloride 250 ml @ 167 mls/hr Q8H 07/10/20 08:30 07/10/20 09:15 167 MLS/HR Vancomycin HCl 1.5 gm/Sodium Chloride 500 ml @ 250 mls/hr Q12H 07/09/20 06:00 07/10/20 07:35 DC 07/09/20 17:27 250 MLS/HR Vancomycin HCl 2 gm/Sodium Chloride 500 ml @ 250 mls/hr 1X ONCE 07/08/20 18:15 07/08/20 20:14 DC 07/08/20 18:15 250 MLS/HR Vitamin B Complex (Folbic Tablet) 1 tab DAILY 07/09/20 09:00 07/10/20 09:15 1 TAB Zinc Sulfate (Orazinc) 220 mg DAILY 07/09/20 09:00 07/10/20 09:14 220 MG Labs: Lab Laboratory Tests Test 07/10/20 05:30 White Blood Count 4.2 x10^3/uL (4.0-11.0) Red Blood Count 3.00 x10^6/uL (4.30-5.70) Hemoglobin 10.2 g/dL (13.0-17.5) Hematocrit 30.7 % (39.0-53.0) Mean Corpuscular Volume 102 fL (79-100) Mean Corpuscular Hemoglobin 34 pg (25-35) Mean Corpuscular Hemoglobin Concent 33 g/dL (31-37) Red Cell Distribution Width 12.7 % (11.5-14.5) Platelet Count 204 x10^3/uL (140-400) Neutrophils (%) (Auto) 61 % (31-73) Lymphocytes (%) (Auto) 28 % (24-48) Monocytes (%) (Auto) 9 % (0-9) Eosinophils (%) (Auto) 2 % (0-3) Basophils (%) (Auto) 1 % (0-3) Neutrophils # (Auto) 2.6 x10^3/uL (1.8-7.7) Lymphocytes # (Auto) 1.2 x10^3/uL (1.0-4.8) Monocytes # (Auto) 0.4 x10^3/uL (0.0-1.1) Eosinophils # (Auto) 0.1 x10^3/uL (0.0-0.7) Basophils # (Auto) 0.0 x10^3/uL (0.0-0.2) Sodium Level 138 mmol/L (136-145) Potassium Level 2.9 mmol/L (3.5-5.1) Chloride Level 101 mmol/L (98-107) Carbon Dioxide Level 28 mmol/L (21-32) Anion Gap 9 (6-14) Blood Urea Nitrogen 5 mg/dL (8-26) Creatinine 0.6 mg/dL (0.7-1.3) Estimated GFR (Cockcroft-Gault) 174.0 BUN/Creatinine Ratio 8 (6-20) Glucose Level 94 mg/dL (70-99) Calcium Level 8.3 mg/dL (8.5-10.1) Total Bilirubin 0.6 mg/dL (0.2-1.0) Aspartate Amino Transf (AST/SGOT) 21 U/L (15-37) Alanine Aminotransferase (ALT/SGPT) 15 U/L (16-63) Alkaline Phosphatase 52 U/L (46-116) Total Protein 6.5 g/dL (6.4-8.2) Albumin 2.3 g/dL (3.4-5.0) Albumin/Globulin Ratio 0.5 (1.0-1.7) Vancomycin Level Trough 6.1 mcg/mL (10.0-20.0) Vancomycin Last Dose Date 07/09/20 Vancomycin Last Dose Time 1800 Objective: Assessment: Patient seen and examined ID consult dictated Plan: Plan of Care Patient can be discharged on Keflex 500 mg p.o. 4 times daily for 7 days Probiotic Pain control per primary Prescription in chart Discussed with nursing staff JUAN GRANT MD Jul 10, 2020 12:34
--- NOTE | 2020-07-10 12:35 | PDOC3 ---
Discharge Summary Date of Admission: Jul 08, 2020 Date of Discharge: Jul 10, 2020 Follow-Up: 3-5 days Admitting Diagnosis comment: discharge dx Assessment/Plan fall, leg pain and hip pain pelvis fracure, pain control PT and OT Subacute appearing fractures involving the right inferior and superior pubic rami, minimally displaced. Minimally displaced right sacral devin fractures also noted. LE edema and cellulitis, po keflex qid x 10 days schizophrenia homeless mild malnutrition, admit D/W RN see pcp tuesday d/c planning 24 min Justicifation of Admission Dx: Justicifation of Admission Dx: Justifications for Admission: Justification of Admission Dx: N/A History of Present Illness History of Present Illness History of Present Illness History of Present Illness Mr. Pulido, is a 49 year old male who presents with states he fell down [address] st airs 2 weeks ago but did not seek any medical care. He is disheveled and appears to have poor self care. Noted back pain and he thinks that he hit his head. He is here today complaining of bilateral lower extremity pain, bilateral lower feet swelling Pain 07/07./ noted edmea to feet and ankles and is tender Patient has a history of schizophrenia, and appears homeless Past Medical History Cardiovascular: HTN Psych: Psychosis, Schizophrenia Past Surgical History Past Surgical History: No pertinent history Family History Family History: High Cholestrol, Hypertension Social History Smoke: <1 pack per day ALCOHOL: none Drugs: Other Vitals Vitals Vital Signs Date Time Temp Pulse Resp B/P (MAP) Pulse Ox O2 Delivery O2 Flow Rate FiO2 07/10/20 02:40 98.4 77 21 118/78 (91) 98 Room Air 98.4 Physical Exam General: Alert, Oriented X3, Cooperative, moderate distress Heart: Regular rate Lungs: Clear Abdomen: Normal bowel sounds, Soft Extremities: No clubbing, No cyanosis, Other (2+ pedal edema) Skin: Other (erythema and edema left ankle worse than right, very poor nail care) Labs LABS Examination: Bilateral venous Doppler Indication: Leg swelling Technique: Ultrasound evaluation of the bilateral lower extremities was performed from the groin to the upper calf with kent scale, spectral and color doppler evaluation. Findings: There is normal venous flow and compressibility of bilateral common femoral veins, femoral veins, popliteal veins, and visualized proximal calf veins. Of note, the calf veins are not well seen due to soft tissue swelling. Mildly prominent lymph nodes in the left inguinal region, possibly reactive. Impression: No evidence for deep vein thrombosis of bilateral lower extremities from the level of the calf veins to the groins. Electronically signed by: Kit Terrazas MD (07/08/2020 7:27 PM) [facility] DICTATED and SIGNED BY: KIT TERRAZAS MD DATE: 07/08/201926 FINAL DIAGNOSIS Problems Medical Problems: (1) Cellulitis Status: Acute (2) Pelvic fracture Status: Acute Brief Hospital Course Mr. Pulido is a 49 old [sex] who presented with [ ] Discharge Medications Current Medications Fentanyl Citrate (Fentanyl 2ml Vial) 50 mcg 1X ONCE IVP Last administered on 07/08/20at 17:04; Start 07/08/20 at 17:15; Stop 07/08/20 at 17:16; Status DC Vancomycin HCl (Vanco Per Pharmacy) 1 each PRN DAILY PRN MC SEE COMMENTS Last administered on 07/10/20at 07:47; Start 07/08/20 at 18:00 Vancomycin HCl 2 gm/Sodium Chloride 500 ml @ 250 mls/hr 1X ONCE IV Last administered on 07/08/20at 18:15; Start 07/08/20 at 18:15; Stop 07/08/20 at 20:14; Status DC Ondansetron HCl (Zofran) 4 mg PRN Q8HRS PRN IV NAUSEA/VOMITING Last administered on 07/08/20at 23:37; Start 07/08/20 at 18:30; Stop 07/09/20 at 18:29; Status DC Fentanyl Citrate (Fentanyl 2ml Vial) 50 mcg PRN Q1HR PRN IV PAIN; Start 07/08/20 at 18:30; Stop 07/09/20 at 18:29; Status DC Enoxaparin Sodium (Lovenox Per Pharmacy Prophylaxis Dosing) 1 each PRN DAILY PRN MC SEE COMMENTS; Start 07/08/20 at 20:45 Vitamin B Complex (Folbic Tablet) 1 tab DAILY PO Last administered on 07/10/20at 09:15; Start 07/09/20 at 09:00 Ascorbic Acid (Vitamin C) 500 mg DAILY PO Last administered on 07/10/20at 09:15; Start 8/12/20 at 09:00 Zinc Sulfate (Orazinc) 220 mg DAILY PO Last administered on 07/10/20 09:14; Start 07/09/20 at 09:00 Metoprolol Tartrate (Lopressor) 25 mg BID PO Last administered on 07/10/20 09:15; Start 07/08/20 at 21:00 Enoxaparin Sodium (Lovenox 40mg Syringe) 40 mg Q24H SQ Last administered on 07/09/20 20:40; Start 07/08/20 at 21:00 Quetiapine Fumarate (SEROquel) 100 mg HS PO Last administered on 07/09/20 20:39; Start 07/08/20 at 21:00 Vancomycin HCl 1.5 gm/Sodium Chloride 500 ml @ 250 mls/hr Q12H IV Last administered on 07/09/20 17:27; Start 07/09/20 at 06:00; Stop 07/10/20 at 07:35; Status DC Vancomycin HCl (Vancomycin Trough Level) 1 each 1X ONCE MC Last administered on 07/10/20at 05:30; Start 07/10/20 at 05:30; Stop 07/10/20 at 05:31; Status DC Acetaminophen (Tylenol) 650 mg PRN Q6HRS PRN PO FEVER > 100.3'F Last administered on 07/09/20 20:48; Start 07/08/20 at 22:15 Ceftriaxone Sodium (Rocephin) 2 gm Q24H IVP Last administered on 07/09/20 20:39; Start 07/08/20 at 22:30 Lactobacillus Rhamnosus (Culturelle) 1 cap BID PO Last administered on 07/10/20 09:15; Start 07/09/20 at 21:00 Potassium Bicarbonate (Potassium Effervescent Tablet) 40 meq Q4H PO Last administered on 07/10/20 12:00; Start 07/10/20 at 07:45; Stop 07/10/20 at 11:46; Status DC Vancomycin HCl 1.25 gm/Sodium Chloride 250 ml @ 167 mls/hr Q8H IV Last administered on 07/10/20 09:15; Start 07/10/20 at 08:30 Vancomycin HCl (Vancomycin Trough Level) 1 each 1X ONCE MC ; Start 07/11/20 at 08:00; Stop 07/11/20 at 08:01 Potassium Bicarbonate (Potassium Effervescent Tablet) 40 meq 1X ONCE FT ; S tart 07/10/20 at 11:30; Stop 07/10/20 at 11:31; Status Cancel Magnesium Sulfate 50 ml @ 25 mls/hr PRN DAILY PRN IV FOR MAG<1.7; Start 07/10/20 at 11:15 Potassium Phos/ Sodium Phos (Phos-Nak) 1 pkt PRN BID PRN PO FOR PHOS 2-2.4 X 2 DOSES; Start 07/10/20 at 21:00 Potassium Bicarbonate (Potassium Effervescent Tablet) 40 meq Q4H PO ; Start 07/10/20 at 11:15; Stop 07/10/20 at 15:16; Status UNV Info (Non-Icu Electrolyte Protocol) 1 ea CONT PRN PRN MC SEE COMMENTS; Start 07/10/20 at 11:15 Active Scripts Active Reported Unable To Obtain Meds From Prior To Admit (Info) Each 1 Each Vital Signs Vital Signs Date Time Temp Pulse Resp B/P (MAP) Pulse Ox O2 Delivery O2 Flow Rate FiO2 07/10/20 11:00 98.0 87 16 115/80 (92) 99 Room Air 98.0 Labs Laboratory Tests Test 07/08/20 16:20 07/08/20 20:46 07/09/20 05:50 07/10/20 05:30 White Blood Count 9.3 x10^3/uL (4.0-11.0) 4.2 x10^3/uL (4.0-11.0) Red Blood Count 3.30 x10^6/uL (4.30-5.70) 3.00 x10^6/uL (4.30-5.70) Hemoglobin 11.6 g/dL (13.0-17.5) 10.2 g/dL (13.0-17.5) Hematocrit 33.3 % (39.0-53.0) 30.7 % (39.0-53.0) Mean Corpuscular Volume 101 fL (79-100) 102 fL (79-100) Mean Corpuscular Hemoglobin 35 pg (25-35) 34 pg (25-35) Mean Corpuscular Hemoglobin Concent 35 g/dL (31-37) 33 g/dL (31-37) Red Cell Distribution Width 12.4 % (11.5-14.5) 12.7 % (11.5-14.5) Platelet Count 210 x10^3/uL (140-400) 204 x10^3/uL (140-400) Neutrophils (%) (Auto) 79 % (31-73) 61 % (31-73) Lymphocytes (%) (Auto) 12 % (24-48) 28 % (24-48) Monocytes (%) (Auto) 8 % (0-9) 9 % (0-9) Eosinophils (%) (Auto) 0 % (0-3) 2 % (0-3) Basophils (%) (Auto) 1 % (0-3) 1 % (0-3) Neutrophils # (Auto) 7.3 x10^3/uL (1.8-7.7) 2.6 x10^3/uL (1.8-7.7) Lymphocytes # (Auto) 1.1 x10^3/uL (1.0-4.8) 1.2 x10^3/uL (1.0-4.8) Monocytes # (Auto) 0.8 x10^3/uL (0.0-1.1) 0.4 x10^3/uL (0.0-1.1) Eosinophils # (Auto) 0.0 x10^3/uL (0.0-0.7) 0.1 x10^3/uL (0.0-0.7) Basophils # (Auto) 0.1 x10^3/uL (0.0-0.2) 0.0 x10^3/uL (0.0-0.2) Sodium Level 130 mmol/L (136-145) 138 mmol/L (136-145) Potassium Level 4.1 mmol/L (3.5-5.1) 2.9 mmol/L (3.5-5.1) Chloride Level 92 mmol/L (98-107) 101 mmol/L (98-107) Carbon Dioxide Level 29 mmol/L (21-32) 28 mmol/L (21-32) Anion Gap 9 (6-14) 9 (6-14) Blood Urea Nitrogen 7 mg/dL (8-26) 5 mg/dL (8-26) Creatinine 0.7 mg/dL (0.7-1.3) 0.8 mg/dL (0.7-1.3) 0.6 mg/dL (0.7-1.3) Estimated GFR (Cockcroft-Gault) 145.6 124.8 174.0 BUN/Creatinine Ratio 10 (6-20) 8 (6-20) Glucose Level 83 mg/dL (70-99) 94 mg/dL (70-99) Calcium Level 8.5 mg/dL (8.5-10.1) 8.3 mg/dL (8.5-10.1) Total Bilirubin 1.8 mg/dL (0.2-1.0) 0.6 mg/dL (0.2-1.0) Aspartate Amino Transf (AST/SGOT) 32 U/L (15-37) 21 U/L (15-37) Alanine Aminotransferase (ALT/SGPT) 20 U/L (16-63) 15 U/L (16-63) Alkaline Phosphatase 71 U/L (46-116) 52 U/L (46-116) AV-Kza-J-Type Natriuretic Peptide 26 pg/mL (0-124) Total Protein 7.7 g/dL (6.4-8.2) 6.5 g/dL (6.4-8.2) Albumin 3.2 g/dL (3.4-5.0) 2.3 g/dL (3.4-5.0) Albumin/Globulin Ratio 0.7 (1.0-1.7) 0.5 (1.0-1.7) Urine Collection Type Unknown Urine Color [place] Urine Clarity Cloudy Urine pH (<5.0-8.0) Urine Specific [place] 1.030 (1.000-1.030) Urine Protein mg/dL (NEG-TRACE) Urine Glucose (UA) mg/dL (NEG) Urine Ketones (Stick) mg/dL (NEG) Urine Blood (NEG) Urine Nitrite (NEG) Urine Bilirubin (NEG) Urine Urobilinogen Dipstick mg/dL (0.2 mg/dL) Urine Leukocyte Esterase (NEG) Urine RBC 1-2 /HPF (0-2) Urine WBC 20-40 /HPF (0-4) Urine Squamous Epithelial Cells Few /LPF Urine Amorphous Sediment Present /HPF Urine Bacteria Few /HPF (0-FEW) Urine Mucus Mod /LPF Urine Opiates Screen Neg (NEG) Urine Methadone Screen Neg (NEG) Urine Barbiturates Neg (NEG) Urine Phencyclidine Screen Neg (NEG) Urine Amphetamine/Methamphetamine Neg (NEG) Urine Benzodiazepines Screen Neg (NEG) Urine Cocaine Screen Neg (NEG) Urine Cannabinoids Screen Pos (NEG) Urine Ethyl Alcohol Neg (NEG) Vancomycin Level Trough 6.1 mcg/mL (10.0-20.0) Vancomycin Last Dose Date 07/09/20 Vancomycin Last Dose Time 1800 Laboratory Tests Test 07/10/20 05:30 White Blood Count 4.2 x10^3/uL (4.0-11.0) Red Blood Count 3.00 x10^6/uL (4.30-5.70) Hemoglobin 10.2 g/dL (13.0-17.5) Hematocrit 30.7 % (39.0-53.0) Mean Corpuscular Volume 102 fL (79-100) Mean Corpuscular Hemoglobin 34 pg (25-35) Mean Corpuscular Hemoglobin Concent 33 g/dL (31-37) Red Cell Distribution Width 12.7 % (11.5-14.5) Platelet Count 204 x10^3/uL (140-400) Neutrophils (%) (Auto) 61 % (31-73) Lymphocytes (%) (Auto) 28 % (24-48) Monocytes (%) (Auto) 9 % (0-9) Eosinophils (%) (Auto) 2 % (0-3) Basophils (%) (Auto) 1 % (0-3) Neutrophils # (Auto) 2.6 x10^3/uL (1.8-7.7) Lymphocytes # (Auto) 1.2 x10^3/uL (1.0-4.8) Monocytes # (Auto) 0.4 x10^3/uL (0.0-1.1) Eosinophils # (Auto) 0.1 x10^3/uL (0.0-0.7) Basophils # (Auto) 0.0 x10^3/uL (0.0-0.2) Sodium Level 138 mmol/L (136-145) Potassium Level 2.9 mmol/L (3.5-5.1) Chloride Level 101 mmol/L (98-107) Carbon Dioxide Level 28 mmol/L (21-32) Anion Gap 9 (6-14) Blood Urea Nitrogen 5 mg/dL (8-26) Creatinine 0.6 mg/dL (0.7-1.3) Estimated GFR (Cockcroft-Gault) 174.0 BUN/Creatinine Ratio 8 (6-20) Glucose Level 94 mg/dL (70-99) Calcium Level 8.3 mg/dL (8.5-10.1) Total Bilirubin 0.6 mg/dL (0.2-1.0) Aspartate Amino Transf (AST/SGOT) 21 U/L (15-37) Alanine Aminotransferase (ALT/SGPT) 15 U/L (16-63) Alkaline Phosphatase 52 U/L (46-116) Total Protein 6.5 g/dL (6.4-8.2) Albumin 2.3 g/dL (3.4-5.0) Albumin/Globulin Ratio 0.5 (1.0-1.7) Vancomycin Level Trough 6.1 mcg/mL (10.0-20.0) Vancomycin Last Dose Date 07/09/20 Vancomycin Last Dose Time 1800 Allergies Allergies Coded Allergies Type Severity Reaction Last Updated Verified No Known Drug Allergies 05/17/19 No Justicifation of Admission Dx: Justifications for Admission: Justification of Admission Dx: Yes Fracture: Fracture PEPPER MOREIRA MD Jul 10, 2020 12:35
[2020-07-10] MEDS ORDERED: ACET325T9 PO (12:39)
[2020-07-10] MEDS ORDERED: ASCO500T4 PO (12:39)
[2020-07-10] MEDS ORDERED: CEPH-264 PO (12:39)
[2020-07-10] MEDS ORDERED: CYAN1TAB19 PO (12:39)
[2020-07-10] MEDS ORDERED: LACT1CAP19 PO (12:39)
[2020-07-10] MEDS ORDERED: ZINC220C2 PO (12:39)
[2020-07-10] MEDS ORDERED: METO25TA4 PO (12:39)
[2020-07-10] MEDS ORDERED: QUET100T PO (12:39)
--- NOTE | 2020-07-10 12:40 | DISCH ---
DISCHARGE INSTRUCTIONS Condition on Discharge Condition on Discharge: Stable Activity After Discharge Activity Instructions for Disc: Activity as tolerated Lifting Instructions after Dis: No heavy lifting, No pulling or pushing Driving Instructions after Dis: Do not drive today Diet after Discharge Diet after Discharge: Cardiac Checks after Discharge Checks after discharge: Check blood press - daily Community/Resources/Services Services at Discharge: PT EVALUATE & TREAT, OT Evaluate & Treat Contacting the DR. after DC Call your doctor for: If your condition worsens Treatment/Equipment after DC Adaptive Equipment Issued: Front wheeled walker PEPPER MOREIRA MD Jul 10, 2020 12:40
--- NOTE | 2020-07-10 14:28 | CONS ---
DATE OF CONSULTATION: 07/10/2020 REFERRING PHYSICIAN: Dr. Lama. REASON FOR CONSULTATION: Antibiotic management for right lower extremity cellulitis. HISTORY OF PRESENT ILLNESS: A 49-year-old male presented to the ER on 07/08/2020 after he fell 8 stairs 2 weeks ago. He did not seek medical care. The patient complained of bilateral lower extremity pain, bilateral lower feet swelling. His white count was normal, hemoglobin of 11.6, platelets of 210. Sodium 130, potassium 4.1, creatinine was 0.7. Today, potassium is 2.9. He was found to have a pelvic fracture. The patient has history of schizophrenia and appears homeless. The patient was started on IV vancomycin and ceftriaxone. Today, the patient is ready for discharge. ID consult has been requested for recommendation for home antibiotics. PAST MEDICAL HISTORY: Hypertension, psychosis, schizophrenia. PAST SURGICAL HISTORY: None. FAMILY HISTORY: As per HPI. SOCIAL HISTORY: Positive for smoking, no alcohol, no drugs. Appears homeless. CURRENT MEDICATIONS: Vancomycin, ceftriaxone. Other medications reviewed in medication list. ALLERGIES: No known drug allergies. REVIEW OF SYSTEMS: Pain is better. Swelling and redness in the right lower foot is better. Continues to have swelling mainly in both lower extremities, but improving. Denies any fevers, chills, nausea, vomiting, diarrhea, abdominal pain, symptoms. Pelvic pain is under control. PHYSICAL EXAMINATION: VITAL SIGNS: T-max 100.6. Noted afebrile this morning, stable. HEENT: Normocephalic, atraumatic, anicteric. Poor dentition. No thrush. NECK: Supple. LUNGS: Clear. HEART: S1, S2. ABDOMEN: Soft, nontender, bowel sounds present. EXTREMITIES: 2+ edema. No erythema, warmth over the right foot improved, onychomycosis. NEUROLOGIC: Alert, awake, normal speech. Moves all 4 extremities. PSYCHIATRIC: Cooperative. LABORATORY DATA: Potassium 2.9. UA 20-40 wbc's. Leukocyte esterase not reported. Nitrite not reported. IMAGING: Lower extremity ultrasound negative for DVT. Pelvic CT, subacute appearing fractures involving the right inferior and superior pubic rami minimally displaced right sacral ala fracture. Femur, no acute osseous abnormality. Hip and pelvic x-rays reviewed. Head and cervical spine CT reviewed. Foot x-ray, soft tissue swelling on the right and left mid foot without acute fracture reviewed. Lumbar spine x-ray reviewed. IMPRESSION: 1. Febrile illness, likely inflammatory. 2. History of fall with pelvic fracture. 3. Right foot cellulitis, improving. 4. Poor dentition. 5. Schizophrenia. 6. Psychosis. 7. Mild malnutrition. RECOMMENDATIONS: 1. Discontinue IV vancomycin and ceftriaxone on discharge. Start Keflex 500 mg p.o. q.i.d. for 7 days, starting tomorrow. Probiotics. 2. Continue supportive care, pain management per primary. Follow up with primary care in 1-2 weeks. Discussed with nursing staff. Script of Keflex in chart. JUAN GRANT MD DR: THO/yumiko JOB#: [id number] / [id number] KRISTEN
[2020-07-10 15:00] VITALS: BP 131/84
[2020-07-10 15:42] LABS: CALCIUM 8.3 mg/dL (8.5-10.1); CREATININE 0.7 mg/dL (0.7-1.3); GFR 145.6; POTASSIUM 4.3 mmol/L (3.5-5.1)
--- NOTE | 2020-07-10 16:14 | NUR ---
SW following. Reviewed chart and discussed with RN. Pt from home and on room air. Pt to discharge home today with his brother Dany. Pt to follow up with out-patient therapy. SW phoned and faxed script, facesheet/clinicals to Renata in out-patient therapy, , (fax). Pt does not have a PCP. SW provided contact numbers for [facility] and the [facility] for PCP to pt. Pt and brother continue to refuse HH and SNU. High risk for readmission. No further SW needs at this time.
--- NOTE | 2020-07-10 18:12 | NUR ---
Discharge Note: PT DISCHARGED HOME WITH SELF CARE. PT LEFT FACILITY VIA PRIVATE VEHICLE WITH BROTHRUBY JUAREZ AT 1810. PT STABLE AND ALERT UPON DISCHARGE. PT PIV REMOVED FROM L HAND WITHOUT COMPLICATIONS, BANDAGE APPLIED. PT LEFT WITH WALKER WHICH WAS PURCHASED HERE. PT EDUCATED ABOUT DISCHARGE INSTRUCTIONS, DISCHARGE MEDICATIONS, AND FOLLOW-UP CARE. PT EDUCATED TO CALL [facility] FOR APPOINTMENT SCHEDULING TO FOLLOW-UP. PT VOICED NO CONCERNS AT THIS TIME. PT LEFT WITH ALL PERSONAL BELONGINGS. CONI SALDIVAR Discharge instructions and discharge home medications reviewed with Patient and a copy given. All questions have been answered and understanding verbalized.
[2020-07-10] MEDS ORDERED: POTASSIUM & SODIUM PHOSPHATES PACKET. PO PRN (21:00)
== END 2020-07-10 18:10 | disposition home or self-care (01) | DRG 603 ==
LOC: ER 14:53 → ED HOLD 18:00 → 5 NORTH 19:31
PROVIDERS: ADMIT Internal Medicine; ATTEND Internal Medicine
DX: L03.115 Cellulitis of right lower limb (principal); S32.9XXA Fracture of unspecified parts of lumbosacral spine and pelvis, initial encounter for closed fracture; E44.1 Mild protein-calorie malnutrition; E87.1 Hypo-osmolality and hyponatremia; F17.210 Nicotine dependence, cigarettes, uncomplicated; F20.9 Schizophrenia, unspecified; I10 Essential (primary) hypertension; M25.78 Osteophyte, vertebrae; M47.9 Spondylosis, unspecified; M51.37 Other intervertebral disc degeneration, lumbosacral region; M81.0 Age-related osteoporosis without current pathological fracture; F12.90 Cannabis use, unspecified, uncomplicated; W10.9XXA Fall (on) (from) unspecified stairs and steps, initial encounter; Y92.009 Unspecified place in unspecified non-institutional (private) residence as the place of occurrence of the external cause; Z59.0 Homelessness; Z82.49 Family history of ischemic heart disease and other diseases of the circulatory system; W18.39XA Other fall on same level, initial encounter; Y93.89 Activity, other specified; Y99.8 Other external cause status
CPT/HCPCS: 36415; 70450; 72125; 72131; 72192; 73521; 73552; 73630; 80048; 80053; 80202; 80307; 81001; 82565; 83880; 85025; 87040; 87086; 93970; 96365; 96375; 99285; J0696; J1650; J2405; J3010; J3370; J7040; J7050; 97110-GP; 97116-GP; 97530-GO; 97535-GO; G0378; J7030

== ENCOUNTER 2021-05-11 19:34 | Emergency (ER) | payer OTHER ==
[~2021-05-11] VITALS: Ht 185.4 cm; Wt 88.0 kg
[~2021-05-11 19:34] MED LIST changes: +ACET325T9 PO; +ASCO500T4 PO; +CEPH-264 PO; +CYAN1TAB19 PO; +LACT1CAP19 PO; +METO25TA4 PO; +QUET100T PO; +ZINC220C2 PO
--- NOTE | 2021-05-11 19:50 | PHYS DOC ---
Past Medical History Past Medical History: Seizure, Schizophrenia, Other Past Surgical History: Other Additional Past Surgical Histo: left eye Smoking Status: Current Every Day Smoker Alcohol Use: Occasionally Drug Use: Marijuana General Adult EDM: Chief Complaint: SEIZURE HPI: HPI: Patient is a 50 year old male with a past medical history seizure disorder presents for evaluation after seizure. Significant other heard a large crash in the other room and found patient laying on the floor having seizure-like activity. Witnessed portion of the seizure lasted approximately 30 seconds. During patient's seizure activity he apparently fell onto and broke a coffee table. On EMS arrival patient was postictal. On exam patient does have a contusion posterior scalp without laceration. There are no oral lesions noted. Patient has full range of motion of bilateral upper and lower extremities. Patient did have loss of bladder. Patient has been prescribed seizure medications but does not know the name. States he does not take. Review of Systems: Review of Systems: Acral physical review of systems: Constitutional symptoms- No fever, no chills. Eyes- No Discharge, No Visual Loss Respiratory symptoms- No shortness of breath, No wheezing, No Dyspnea on Exertion Cardiovascular Systems; No chest pain, No Palpitations, No syncope Gastrointestinal symptoms: NO abdominal pain, no nausea, no vomiting or diarrhea. Genitourinary symptoms: No dysuria. Musculoskeletal symptoms: No back pain No extremity pain. NEUROLOGICAL Symptoms: No headache, no generalized weakness; No focal Weakness positive seizure Heart Score: C/O Chest Pain: N/A Risk Factors: Risk Factors: DM, Current or recent (<one month) smoker, HTN, HLP, family history of CAD, obesity. Risk Scores: Score 0 - 3: 2.5% MACE over next 6 weeks - Discharge Home Score 4 - 6: 20.3% MACE over next 6 weeks - Admit for Clinical Observation Score 7 - 10: 72.7% MACE over next 6 weeks - Early Invasive Strategies Current Medications: Current Medications Medications (Trade) Dose Ordered Sig/Erik Start Time Stop Time Status Last Admin Dose Admin Sodium Chloride 1,000 ml @ 1,000 mls/hr 1X ONCE 05/11/21 20:00 05/11/21 20:59 UNV Allergies: Allergies: Allergies Coded Allergies Type Severity Reaction Last Updated Verified No Known Drug Allergies 05/17/19 No Physical Exam: PE: General: alert, no acute distress. Skin: warm, dry and intact. Head:: Normocephalic, posterior scalp contusion Neck: Trachea midline. Eyes: EOMI, Normal conjunctiva, No drainage CARDIOVASCULAR: Regular rate and rhythm RESPIRATORY: No respiratory distress Back: Full range of motion. MUSCULOSKELETAL: Full range of motion of bilateral upper and lower extremities. GASTROINTESTINAL: Abdomen soft without rebound or guarding. NEUROLOGICAL: Alert and noted to person, place and time. No neurological deficits observed Psychiatric: Cooperative. Normal judgment Current Patient Data: Vital Signs: Vital Signs Date Time Temp Pulse Resp B/P (MAP) Pulse Ox O2 Delivery O2 Flow Rate FiO2 05/11/21 19:39 99.3 118 22 193/111 (138) 99 Room Air 99.3 EKG: EKG: Sinus tachycardia Rate [address] ST depression No acute [place] [] Performed at 1944 Radiology/Procedures: Radiology/Procedures: [] Impression: FINDINGS: No focal parenchymal lesion or hemorrhage is identified. There is no midline shift or sulcal effacement. No acute vascular territory infarction is identified. Romero-white distinction is preserved. The ventricular system is within normal limits without compression hydrocephalus. The basal cisterns are well maintained. Extra soft tissue scalp contusion overlying the right frontal region. The visualized portions of the paranasal sinuses and mastoid air cells are well- pneumatized. No acute fractures. IMPRESSION: Mild extra cranial soft tissue scalp contusion overlying the right frontal region without underlying osseous or intracranial abnormality. Electronically signed by: Alfred Canas MD (05/11/2021 8:11 PM) [facility] Course & Med Decision Making: Course & Med Decision Making Pertinent Labs and Imaging studies reviewed. (See chart for details) [] Patient was evaluated for chief complaint. Work-up consisted of laboratory analysis and radiologic imaging. Labs reviewed no significant abnormalities CT head without acute traumatic injury. Treatment included IV fluids and Keppra. Patient discharged home on Keppra. Dragon Disclaimer: Dragon Disclaimer: This electronic medical record was generated, in whole or in part, using a voice recognition dictation system. Departure Departure Impression: Primary Impression: Seizure Additional Impression: Head contusion Disposition: HOME / SELF CARE / HOMELESS Condition: STABLE Referrals: NO PCP (PCP) Patient Instructions: Contusion, Seizure, Adult Scripts Levetiracetam (KEPPRA) 500 Mg Tablet 500 MG PO BID, #60 TAB Prov: EMORY FARMER DO 05/11/21 EMORY FARMER DO May 11, 2021 19:50
[2021-05-11 19:58] LABS: BASO # 0.1 x10^3/uL (0.0-0.2); BASO % 1 % (0-3); EOS % 1 % (0-3); HEMATOCRIT 40.8 % (39.0-53.0); HEMOGLOBIN 13.8 g/dL (13.0-17.5); LYMPH % 30 % (24-48); MEAN CORPUSCULAR HEMOGLOBIN 36 pg (25-35); MEAN CORPUSCULAR HGB CONC 34 g/dL (31-37); MEAN CORPUSCULAR VOLUME 105 fL (79-100); MONO # 0.6 x10^3/uL (0.0-1.1); MONO % 9 % (0-9); NEUT % 60 % (31-73); PLATELET COUNT 114 x10^3/uL (140-400); RED BLOOD COUNT 3.89 x10^6/uL (4.30-5.70); RED CELL DISTRIBUTION WIDTH 13.6 % (11.5-14.5); WHITE BLOOD COUNT 6.7 x10^3/uL (4.0-11.0)
[2021-05-11] MEDS ORDERED: IV NORMAL SALINE 1000ML BAG 1,000 ML IV ONE (20:00)
--- NOTE | 2021-05-11 20:13 | RAD ---
Exam: CT head INDICATION: Seizure, head contusion TECHNIQUE: Sequential axial images through the head were obtained without the administration of IV co ntrast. Exposure: One or more of the following in the visualized dose reduction techniques were utilized for this examination: 1. Automated exposure control 2. Adjustment of the MA and/or KV according to patient size 3. Use of iterative of reconstructive technique Comparisons: None FINDINGS: No focal parenchymal lesion or hemorrhage is identified. There is no midline shift or sulcal effaceme nt. No acute vascular territory infarction is identified. Romero-white distinction is preserved. The ventricular system is within normal limits without compression hydrocephalus. The basal cisterns are well maintained. Extra soft tissue scalp contusion overlying the right frontal region. The visualized portions of the paranasal sinuses and mastoid air cells are well-pneumatized. No acute fractures. IMPRESSION: Mild extra cranial soft tissue scalp contusion overlying the right frontal region without underlying osseous or intracranial abnormality. Electronically signed by: Alfred Canas MD (05/11/2021 8:11 PM) [facility]
[2021-05-11 20:46] LABS: GFR 96.1; POTASSIUM 3.8 mmol/L (3.5-5.1)
[2021-05-11 20:52] LABS: ALBUMIN 3.7 g/dL (3.4-5.0); ALBUMIN/GLOBULIN RATIO 0.8 (1.0-1.7); TOTAL BILIRUBIN 1.1 mg/dL (0.2-1.0); TOTAL PROTEIN 8.2 g/dL (6.4-8.2)
[2021-05-11] MEDS ORDERED: LEVE500T56 PO (21:10)
[2021-05-11 21:51] VITALS: BP 175/87
== END 2021-05-11 22:27 | disposition home or self-care (01) ==
LOC: ER 19:34
DX: S00.03XA Contusion of scalp, initial encounter (principal); G40.909 Epilepsy, unspecified, not intractable, without status epilepticus; F20.9 Schizophrenia, unspecified; F17.200 Nicotine dependence, unspecified, uncomplicated; X58.XXXA Exposure to other specified factors, initial encounter; Y93.89 Activity, other specified; Y92.89 Other specified places as the place of occurrence of the external cause; Y99.8 Other external cause status
CPT/HCPCS: 36415; 70450; 80053; 85025; 96360; 99284; J7030